=== PATIENT | male | born 2000 | race Hispanic/Latino ===

== ENCOUNTER 2019-12-19 23:49 | Emergency (ER) | payer SELFPAY ==
[2019-12-20 00:28] VITALS: BP 132/80
[2019-12-20 02:00] LABS: Basophils % (Auto) 0.1 % (0.0-1.8); Hematocrit 47.5 % (35.5-45.6); Hemoglobin 15.5 gm/dl (11.8-15.2); Lymphocytes # (Auto) 1.4 K/mm3 (1.2-5.4); Lymphocytes % (Auto) 8.4 % (13.4-35.0); Mean Corpuscular HGB Conc 33 % (32-34); Mean Corpuscular Volume 78 fl (84-94); Monocytes # (Auto) 1.8 K/mm3 (0.0-0.8); Monocytes % (Auto) 10.8 % (0.0-7.3); Platelet Count 217 K/mm3 (140-440); Red Blood Count 6.07 M/mm3 (3.65-5.03); Red Cell Distribution Width 14.7 % (13.2-15.2)
[2019-12-20 02:27] LABS: Alanine Aminotransferase 13 units/L (7-56); Albumin 5.3 g/dL (3.9-5); BUN/Creatinine Ratio 12; Blood Urea Nitrogen 13 mg/dL (9-20); Calcium 10.2 mg/dL (8.4-10.2); Hemolysis Index 2
== END 2019-12-20 05:52 | disposition left against medical advice (07) ==
LOC: ED 23:49
DX: R10.9 Unspecified abdominal pain (principal); Z53.21 Procedure and treatment not carried out due to patient leaving prior to being seen by health care provider
CPT/HCPCS: 36415; 80053; 80320; 85025; G0480

== ENCOUNTER 2019-12-20 13:02 | Inpatient (IN) | payer OTHER ==
[2019-12-20] MEDS ORDERED: SODIUM CHLORIDE 0.9% 1000 ML 1,000 ML IV ONE ×3 (19:41→22:45)
[2019-12-20] MEDS ORDERED: ONDANSETRON 4 MG/2 ML INJ IV ONE (19:41)
[2019-12-20] MEDS ORDERED: FAMOTIDINE 20 MG/2 ML INJ IV ONE (19:41)
[2019-12-20 20:12] LABS: Hematocrit 55.1 % (35.5-45.6); Hemoglobin 18.2 gm/dl (11.8-15.2); Mean Corpuscular HGB Conc 33 % (32-34); Mean Corpuscular Volume 78 fl (84-94); Platelet Count 221 K/mm3 (140-440); Red Blood Count 7.05 M/mm3 (3.65-5.03)
[2019-12-20 20:23] LABS: Alanine Aminotransferase 11 units/L (7-56); Albumin 4.4 g/dL (3.9-5); BUN/Creatinine Ratio 14; Bilirubin,Direct 0.4 mg/dL (0-0.2); Blood Urea Nitrogen 20 mg/dL (9-20); Calcium 9.6 mg/dL (8.4-10.2); Hemolysis Index 15
--- NOTE | 2019-12-20 20:49 | Emergency Department Report ---
<CECILIADANIELITO - Last Filed: 12/20/19 21:00> ED Abdominal Pain HPI - General Chief Complaint: Abdominal Pain Stated Complaint: ABDOMINAL PAIN Time Seen by Provider: 12/20/19 19:39 Source: patient Mode of arrival: Ambulatory Limitations: No Limitations - History of Present Illness Initial Comments: 19-year-old male presents emerged department complaining of abdominal pain associated with nausea and vomiting after going on an alcohol binge a couple days ago. States he consumed several drinks of hard liquor which was followed by nausea and some epigastric abdominal pain which is continue to wax and wane since the onset. Location: epigastric Severity scale (0 -10): 10 Quality: aching, sharp Improves With: nothing Worsens With: nothing Associated Symptoms: nausea, vomiting. denies: diarrhea, constipation, dysuria, hematemesis, melena, hematuria, anorexia - Related Data Previous Rx's Medication Instructions Recorded Last Taken Type Hyoscyamine Subl [Levsin Sl 0.125 0.125 mg SL Q6HR PRN #20 tab 12/20/19 Unknown Rx TAB] Omeprazole 40 mg PO DAILY #30 capsule. 12/20/19 Unknown Rx Ondansetron [Zofran ODT TAB] 8 mg PO Q12HR #14 tab.rapdis 12/20/19 Unknown Rx Allergies Allergy/AdvReac Type Severity Reaction Status Date / Time No Known Allergies Allergy Verified 12/21/19 00:30 ED Review of Systems Comment: All other systems reviewed and negative ED Past Medical Hx - Past Medical History Previous Medical History?: No - Surgical History Past Surgical History?: No - Social History Smoking Status: Never Smoker Substance Use Type: Alcohol, Marijuana - Medications Home Medications: Home Medications Medication Instructions Recorded Confirmed Last Taken Type Hyoscyamine Subl [Levsin Sl 0.125 0.125 mg SL Q6HR PRN #20 tab 12/20/19 Unknown Rx TAB] Omeprazole 40 mg PO DAILY #30 capsule. 12/20/19 Unknown Rx Ondansetron [Zofran ODT TAB] 8 mg PO Q12HR #14 tab.rapdis 12/20/19 Unknown Rx ED Physical Exam - General Limitations: No Limitations General appearance: alert, in no apparent distress - Head Head exam: Present: atraumatic, normocephalic - Eye Eye exam: Present: normal appearance, PERRL, EOMI Pupils: Present: normal accommodation - ENT ENT exam: Present: normal exam, normal orophraynx, mucous membranes moist - Neck Neck exam: Present: normal inspection - Respiratory Respiratory exam: Present: normal lung sounds bilaterally. Absent: respiratory distress - Cardiovascular Cardiovascular Exam: Present: regular rate, normal rhythm. Absent: systolic murmur, diastolic murmur, rubs, gallop - GI/Abdominal GI/Abdominal exam: Present: soft, tenderness (To the epigastric region with palpation. Abdomen is soft), normal bowel sounds - Rectal Rectal exam: Present: deferred - Extremities Exam Extremities exam: Present: normal inspection - Back Exam Back exam: Present: normal inspection - Neurological Exam Neurological exam: Present: alert, oriented X3 - Psychiatric Psychiatric exam: Present: normal affect, normal mood - Skin Skin exam: Present: warm, dry, intact, normal color. Absent: rash ED Medical Decision Making - Lab Data Result diagrams: 12/20/19 19:50 12/20/19 19:50 - Medical Decision Making This patient presents with abdominal pain of unclear etiology. Their evaluation has not identified a emergent etiology for the abdominal pain. Specifically, given the very benign exam, normal laboratory studies, and lack of significant risk factors, I have a very low suspicion for appendicitis, ischemic bowel, bowel perforation, or any other life threatening disease. I have discussed with the patient the level of uncertainty with undifferentiated abdominal pain and clearly explained the need to follow-up as noted on the discharge instructions, or return to the Emergency Department immediately if the pain worsens, develops fever, persistent and uncontrollable vomiting, or for any new symptoms or concerns. I discussed with the patient that this presentation today for abdominal pain could represent a significant risk for an acute abdominal process. Although the tests in the ED were essentially normal, there is still a possibility of a process such as appendicitis, diverticulitis, cholecystitis, ulcer, early bowel obstruction, mesenteric ischemia, kidney stone, or even kidney infection which could subsequently cause disability or . The patient understands that they must return within 24 hours for a recheck or see their physician within 24 hours for re-exam due to the possibility of significant surgical or medical process. ED Disposition Clinical Impression: Acute perforated appendicitis, Pneumoperitoneum, Sepsis Disposition: OP ADMIT IP TO THIS HOSP Is pt being admited?: No Does the pt Need Aspirin: No Condition: Stable <OSEDO,JOSE - Last Filed: 12/20/19 23:44> ED Abdominal Pain HPI - History of Present Illness MD Complaint: abdominal pain, flank pain ED Medical Decision Making - Lab Data Result diagrams: 12/20/19 19:50 12/20/19 19:50 - Radiology Data Radiology results: report reviewed, image reviewed Findings [facility] [address] [id number] Cat Scan Report Signed Patient: MARSHA WALSH III MR# : [id number] : 2000 Acct:[id number] Age/Sex: 19 / M ADM Date: 12/20/19 Loc: ED Attending Dr: Ordering Physician: ONOFRE MARTINEZ Date of Service: 12/20/19 Procedure(s): CT abdomen pelvis w con Accession Number(s): [id number] cc: ONOFRE MARTINEZ CT ABDOMEN AND PELVIS WITH IV CONTRAST INDICATION: abdominal pain, distension. COMPARISON: None available. TECHNIQUE: All CT scans at this facility use dose modulation, automated exposure control, iterative reconstruction or weight based dosing, when appropriate, to reduce radiation dose to as low as reasonably achievable. FINDINGS: Lung Bases: Lung bases are clear. There is a trace right pleural effusion. Skeletal System: No acute abnormality. ABDOMEN: Liver: No significant abnormality. Gallbladder: No significant abnormality. Bile Ducts: No significant abnormality. Pancreas: No significant abnormality. Spleen: No significant abnormality. Adrenals: No significant abnormality. Right Kidney: No significant abnormality. Left Kidney: No significant abnormality. Upper GI tract: Stomach and duodenum are relatively decompressed, limiting their evaluation. Small bowel is diffusely thick-walled with mural/mucosal enhancement. Lymph Nodes: There is right lower quadrant mesenteric adenopathy. Aorta: No significant abnormality. Additional Findings: There is ascites. There are a few punctate foci of free air under the right hemidiaphragm anteriorly. PELVIS: Colon: No acute abnormality. Urinary Bladder and Distal Ureters: No significant abnormality. Appendix: The appendix is thickened and fluid-filled. There appears to be rupture of the tip of the appendix (axial image 167, coronal images 83-90). Lymph Nodes: No significant adenopathy. Additional Findings: Pelvic ascites is noted. There appears to be mild peritoneal enhancement. IMPRESSION: 1. Ruptured viscus in the right lower quadrant, likely ruptured appendicitis. In addition to small amount of mesenteric gas and trace pneumoperitoneum, there is ascites. There is suggestion of mild peritoneal enhancement which is concerning for peritonitis. Small bowel inflammation is likely reactive related to the free fluid/peritonitis. CRITICAL RESULT: Time of Discovery (OFFICE MACHINE INSTALLER/CDT): 10:31 PM central Time of Communication (OFFICE MACHINE INSTALLER/CDT): 10:34 PM central Licensed Practitioner Receiving Report: Jose ADHIKARI Read-Back Performed: Yes. Signer Name: Gustabo Townsend MD Signed: 12/20/2019 11:35 PM Workstation Name: [id number] Transcribed By: SW Dictated By: Gustabo Townsend MD Electronically Authenticated By: Gustabo Townsend MD Signed Date/Time: 12/20/192334 DD/ 24 TD/TT: - Medical Decision Making I assumed care of the patient from Mr. Ramosalexandria Dunaway PA-C. Patient had presented to the ED with diffuse abdominal pain and intractable nausea and vomiting after alcohol consumption. Labs were drawn earlier before my shift, and the patient having been treated in the ED was marked for discharge from the ED. On reevaluation, patient's vital signs became unstable with heart rate of 135 bpm and blood pressure of 107/55. On reevaluation of the patient patient had shortness of breath, diffuse abdominal tenderness with guarding and dist ention with hyperkinetic bowel sounds. Patient was immediately started on a second liter of normal saline IV fluid bolus, EKG was ordered and more lab tests. Abdomen pelvis CT scan with contrast was also ordered immediately as well as chest x-ray. Chest x-ray was reviewed and it showed no acute c ardiopulmonary abnormalities or pneumonitis. Abdomen pelvis CT scan showed a ruptured viscus in the right lower quadrant, likely ruptured appendicitis. In addition to small amount of mesenteric gas and trace pneumoperitoneum, there is ascites. There is suggestion of mild peritoneal enhancement which is concerning for peritonitis. Small bowel inflammation is likely reactive related to the free fluid/peritonitis. The patient was immediately started on Zosyn, normal saline 1 L IV bolus additional from what he already received, placed on nasal cannula oxygen at 2 L a minute. I therefore discussed the patient's case with the ED attending physician Dr. Head who advised that the patient case be presented to the general surgeon on-call Dr. Roach. I therefore paged and discussed the patient's case and imaging report with the general surgeon on-call Dr. Roach who advised that the patient be immediately resuscitated with fluids, antibiotics and that the patient be admitted by the ospitalist physician on-call possibly in ICU and he shall consult on the patient once the patient is stable. I therefore paged and discussed the patient's case with the hospitalist physician on-call Dr. Nicole who came to the ED and evaluated the patient and agree with the plan of care, and he admitted the patient to ICU. - Differential Diagnosis Appendicitis; perforated bowel; SBO; pneumonia; kidney stone; ED Disposition Is pt being admited?: Yes Time of Disposition: 23:53 <JANNET HEAD - Last Filed: 12/21/19 03:20> ED Review of Systems ROS: Stated complaint: ABDOMINAL PAIN Other details as noted in HPI ED Course Vital Signs 12/20/19 12/20/19 12/20/19 13:32 21:24 22:40 Temperature 98.1 F 98.4 F Pulse Rate 95 H 135 H Respiratory 20 20 Rate Blood Pressure Blood Pressure 138/90 107/55 [Right] O2 Sat by Pulse 96 96 98 Oximetry 12/20/19 12/20/19 12/20/19 22:47 22:53 22:55 Temperature Pulse Rate 135 H Respiratory 18 Rate Blood Pressure Blood Pressure [Right] O2 Sat by Pulse 100 Oximetry 12/21/19 12/21/19 12/21/19 01:03 01:15 01:30 Temperature 99.5 F Pulse Rate 128 H 117 H Respiratory 15 35 H Rate Blood Pressure 116/74 117/81 126/78 Blood Pressure [Right] O2 Sat by Pulse 87 96 97 Oximetry 12/21/19 12/21/19 12/21/19 01:45 02:00 02:15 Temperature Pulse Rate 118 H 115 H 125 H Respiratory 34 H 38 H 32 H Rate Blood Pressure 123/85 120/80 128/79 Blood Pressure [Right] O2 Sat by Pulse 99 100 96 Oximetry 12/21/19 12/21/19 12/21/19 02:30 02:45 03:00 Temperature Pulse Rate 112 H 122 H 117 H Respiratory 35 H 33 H 43 H Rate Blood Pressure 121/76 131/81 123/79 Blood Pressure [Right] O2 Sat by Pulse 99 97 97 Oximetry ED Medical Decision Making - Lab Data Result diagrams: 12/20/19 19:50 12/20/19 19:50 - Medical Decision Making Patient brought to my attention by my colleague ONOFRE Martinez had 00:45 AM. Patient was signed to him by and Aramis for possible discharge however he noticed that patient vital sign change patient became more tachycardic. CT abdomen and pelvis ordered and patient found to have a perforated appendix with peritonitis. Dr. Roach,, surgeon construction technology instructor immediately consulted and patient received Zosyn. Resuscitation with fluid continued also. I personally examined the patient patient had rigid abdomen. I added Diflucan to patient antibiotic regimen. Patient was taken to the OR for further management. Critical Care Time: Yes Critical care time in (mins) excluding proc time.: 30 Critical care attestation.: If time is entered above; I have spent that time in minutes in the direct care of this critically ill patient, excluding procedure time.
[2019-12-20] MEDS ORDERED: HYOSCYAMINE SUBL 0.125 MG TAB SL ONE (21:10)
[2019-12-20] MEDS ORDERED: ONDANSETRON 4 MG/2 ML INJ IV STA (21:10)
[2019-12-20] MEDS ORDERED: MORPHINE 2 MG/1 ML INJ IV ONE (22:43)
[2019-12-20] MEDS ORDERED: METOCLOPRAMIDE 10 MG/2 ML INJ IV ONE (22:44)
[2019-12-20] MEDS ORDERED: diphenhydrAMINE 50 MG/ML VIAL IV ONE (22:44)
--- NOTE | 2019-12-20 23:03 | XRay Report ---
CHEST 1 VIEW INDICATION: cough. COMPARISON: None. FINDINGS: Support devices: None. Heart: Normal. Lungs/Pleura: No acute pulmonary or pleural findings. IMPRESSION: 1. No acute findings. Signer Name: Gustabo Townsend MD Signed: 12/20/2019 10:58 PM Workstation Name: [id number]
[2019-12-20 23:17] LABS: Bilirubin,Urine NEG (Negative); Blood,Urine SM (Negative); Color,Urine Yellow (Yellow); Mucus,Urine FEW /HPF; Urobilinogen,Urine < 2.0 mg/dL (<2.0)
[2019-12-20 23:26] LABS: Amphetamine Screen,Urine PRESUMPTIVE NEGATIVE; Benzodiazepines Screen,Urine PRESUMPTIVE NEGATIVE; Cannabinoid Screen,Urine PRESUMPTIVE POSITIVE; Cocaine Screen,Urine PRESUMPTIVE NEGATIVE; Methadone Screen,Urine PRESUMPTIVE NEGATIVE; Opiate Screen,Urine PRESUMPTIVE NEGATIVE
--- NOTE | 2019-12-20 23:40 | Cat Scan Report ---
CT ABDOMEN AND PELVIS WITH IV CONTRAST INDICATION: abdominal pain, distension. COMPARISON: None available. TECHNIQUE: All CT scans at this facility use dose modulation, automated exposure control, iterative reconstructi on or weight based dosing, when appropriate, to reduce radiation dose to as low as reasonably achieva ble. FINDINGS: Lung Bases: Lung bases are clear. There is a trace right pleural effusion. Skeletal System: No acute abnormality. ABDOMEN: Liver: No significant abnormality. Gallbladder: No significant abnormality. Bile Ducts: No significant abnormality. Pancreas: No significant abnormality. Spleen: No significant abnormality. Adrenals: No significant abnormality. Right Kidney: No significant abnormality. Left Kidney: No significant abnormality. Upper GI tract: Stomach and duodenum are relatively decompressed, limiting their evaluation. Small heidi wel is diffusely thick-walled with mural/mucosal enhancement. Lymph Nodes: There is right lower quadrant mesenteric adenopathy. Aorta: No significant abnormality. Additional Findings: There is ascites. There are a few punctate foci of free air under the right albino diaphragm anteriorly. PELVIS: Colon: No acute abnormality. Urinary Bladder and Distal Ureters: No significant abnormality. Appendix: The appendix is thickened and fluid-filled. There appears to be rupture of the tip of the a ppendix (axial image 167, coronal images 83-90). Lymph Nodes: No significant adenopathy. Additional Findings: Pelvic ascites is noted. There appears to be mild peritoneal enhancement. IMPRESSION: 1. Ruptured viscus in the right lower quadrant, likely ruptured appendicitis. In addition to small a mount of mesenteric gas and trace pneumoperitoneum, there is ascites. There is suggestion of mild per itoneal enhancement which is concerning for peritonitis. Small bowel inflammation is likely reactive related to the free fluid/peritonitis. CRITICAL RESULT: Time of Discovery (AUTO TECHNICIAN MECHANIC/CDT): 10:31 PM central Time of Communication (AUTO TECHNICIAN MECHANIC/CDT): 10:34 PM central Licensed Practitioner Receiving Report: Ruperto ADHIKARI Read-Back Performed: Yes. Signer Name: Gustabo Townsend MD Signed: 12/20/2019 11:35 PM Workstation Name: [id number]
[2019-12-20] MEDS ORDERED: PIPERACIL/TAZOBACTA 4.5/NS 100 4.5 GM/100 ML VIAL IV ONE (23:43)
[2019-12-20 23:53] LABS: Total Cells Counted 100
[2019-12-20 23:54] LABS: Band Neutrophils # (Manual) 0.2 K/mm3; Basophils % (Manual) 0 % (0.0-1.8); Eosinophils % (Manual) 0 % (0.0-4.3); Hypochromasia 1+; Ovalocytes Few; Platelet Estimate Consistent w Auto
[2019-12-21] MEDS ORDERED: MORPHINE 2 MG/1 ML INJ IV PRN (00:12)
[2019-12-21] MEDS ORDERED: ONDANSETRON 4 MG/2 ML INJ IV PRN (00:12)
[2019-12-21] MEDS ORDERED: SODIUM CHLORIDE 0.9% 1000 ML 1,000 ML IV SCH (00:15)
--- NOTE | 2019-12-21 00:28 | History and Physical Report ---
History of Present Illness Date of examination: 12/21/19 Date of admission: 12/21/2019 Chief complaint: Nausea and Vomiting Abdominal Pain History of present illness: 19-year-old -[place] male with no significant past medical history who presents to the emergency room today complaining of abdominal pain with associated nausea and vomiting. Patient states he was celebrating his 19st birthday and went on the binge drinking of alcohol. He thereafter started having nausea and vomiting with the associated abdominal pain. Abdominal pain is said to be epigastric and later became generalized.. There was a plan for patient to be discharged from the emergency room when he suddenly became hypotensive, tachycardic, tachypneic and diaphoretic I was further reevaluated by the ER physician for CT of the abdomen and pelvis. CT of the abdomen and pelvis however reveals : Ruptured viscus in the right lower quadrant, likely ruptured appendicitis. In addition to small amount of mesenteric gas and trace pneumoperitoneum, there is ascites. There is suggestion of mild peritoneal enhancement which is concerning for peritonitis. Small bowel inflammation is likely reactive related to the free fluid/peritonitis. General surgeon on-call was consulted by the ER physician for evaluation. Patient has been admitted for ruptured appendicitis and or peritonitis. He has been started on IV fluid and empiric IV antibiotics Past History Past Medical History: No medical history Past Surgical History: No surgical history Social history: no significant social history, alcohol abuse, other (Marijuana ) Family history: no significant family history Medications and Allergies Allergies Allergy/AdvReac Type Severity Reaction Status Date / Time No Known Allergies Allergy Verified 12/21/19 00:30 Home Medications Medication Instructions Recorded Confirmed Last Taken Type Hyoscyamine Subl [Levsin Sl 0.125 0.125 mg SL Q6HR PRN #20 tab 12/20/19 Unknown Rx TAB] Omeprazole 40 mg PO DAILY #30 capsule. 12/20/19 Unknown Rx Ondansetron [Zofran ODT TAB] 8 mg PO Q12HR #14 tab.maximino 12/20/19 Unknown Rx Active Meds: Active Medications Sodium Chloride (Nacl 0.9% 1000 Ml) 1,000 mls @ 125 mls/hr IV DIRECT REGGIE Piperacillin Sod/Tazobactam Sod (Zosyn/Ns 4.5gm/100ml) 4.5 gm in 100 mls @ 200 mls/hr IV Q8HR REGGIE; Protocol Morphine Sulfate (Morphine) 2 mg IV Q4H PRN PRN Reason: Pain, Moderate (4-6) Morphine Sulfate (Morphine) 2 mg IV Q4H PRN PRN Reason: Pain, Moderate (4-6) Ondansetron HCl (Zofran) 4 mg IV Q8H PRN PRN Reason: Nausea And Vomiting Sodium Chloride (Sodium Chloride Flush Syringe 10 Ml) 10 ml IV BID REGGIE Sodium Chloride (Sodium Chloride Flush Syringe 10 Ml) 10 ml IV PRN PRN PRN Reason: LINE FLUSH Sodium Chloride (Sodium Chloride Flush Syringe 10 Ml) 10 ml IV BID REGGIE Sodium Chloride (Sodium Chloride Flush Syringe 10 Ml) 10 ml IV PRN PRN PRN Reason: LINE FLUSH Review of Systems Constitutional: no fever, no chills Ears, nose, mouth and throat: no nasal congestion, no sore throat Cardiovascular: no chest pain, no palpitations Respiratory: no cough, no shortness of breath Gastrointestinal: abdominal pain, nausea, vomiting, no BRBPR, no melena Genitourinary Male: no dysuria, no hematuria, no flank pain, no nocturia Musculoskeletal: no neck pain, no low back pain Integumentary: no rash, no pruritis Neurological: no headaches, no confusion Psychiatric: no anxiety, no depression Exam - Constitutional Vitals: Temp Pulse Resp BP Pulse Ox 98.4 F 135 H 18 107/55 96 12/20/19 21:24 12/20/19 22:47 12/20/19 22:53 12/20/19 21:24 12/20/19 21:24 General appearance: Present: mild distress, well-nourished - EENT Eyes: Present: PERRL, EOM intact. Absent: scleral icterus ENT: hearing intact, clear oral mucosa, dentition normal - Neck Neck: Present: supple, normal ROM - Respiratory Respiratory effort: normal Respiratory: bilateral: CTA - Cardiovascular Heart rate: 135 (tachycardic) Rhythm: regular Heart Sounds: Present: S1 & S2. Absent: gallop, systolic murmur, diastolic murmur, rub - Extremities Extremities: no ischemia, pulses intact, pulses symmetrical, No edema, Full ROM Peripheral Pulses: within normal limits - Abdominal General gastrointestinal: Present: soft, tender (Genralized , with guarding,no rebound tenderness), non-distended, normal bowel sounds. Absent: mass - Integumentary Integumentary: Present: clear, warm, dry. Absent: rash - Musculoskeletal Musculoskeletal: strength equal bilaterally - Psychiatric Psychiatric: appropriate mood/affect, intact judgment & insight, memory intact, cooperative - Neurologic Neurologic: CNII-XII intact, no focal deficits, moves all extremities HEART Score - HEART Score Troponin: Troponin T < 0.010 ng/mL (0.00-0.029) 12/20/19 23:09 Results - Labs CBC & Chem 7: 12/20/19 19:50 12/20/19 19:50 Labs: Abnormal lab results 12/20/19 12/20/19 Range/Units 19:50 19:50 WBC 2.9 L (4.5-11.0) K/mm3 RBC 7.05 H (3.65-5.03) M/mm3 Hgb 18.2 H (11.8-15.2) gm/dl Hct 55.1 H D (35.5-45.6) % MCV 78 L (84-94) fl MCH 26 L (28-32) pg Monocytes % (Manual) 8.0 H (0.0-7.3) % Lymphocytes # (Manual) 0.7 L (1.2-5.4) K/mm3 Sodium 132 L D (137-145) mmol/L Chloride 90.2 L (98-107) mmol/L Carbon Dioxide 21 L (22-30) mmol/L Creatinine 1.4 H (0.8-1.3) mg/dL Glucose 134 H (75-100) mg/dL Total Bilirubin 1.40 H (0.1-1.2) mg/dL Direct Bilirubin 0.4 H (0-0.2) mg/dL Total Protein 8.4 H (6.3-8.2) g/dL Lipase 6 L (13-60) units/L Assessment and Plan - Patient Problems (1) Acute perforated appendicitis Current Visit: Yes Status: Acute Plan to address problem: General surgeon Dr. Roach has been consulted for evaluation and recommen dation. (2) Acute abdominal pain in right lower quadrant Current Visit: Yes Plan to address problem: Possibly secondary to the ruptured appendix. Patient placed on IV analgesic medication. (3) Nausea and vomiting in adult patient Current Visit: Yes Plan to address problem: We will place patient on IV Zofran as needed. (4) DVT prophylaxis Current Visit: Yes Status: Acute Plan to address problem: Patient placed on sequential compression device. (5) Full code status Current Visit: Yes Status: Acute
[2019-12-21 01:00] LABS: INR 1.52 (0.87-1.13)
[2019-12-21 01:01] LABS: Partial Thromboplastin Time 32.6 Sec. (24.2-36.6)
[2019-12-21] MEDS ORDERED: LACTATED RINGERS 1,000 ML IV ONE (01:08)
[2019-12-21] MEDS ORDERED: SODIUM CHLORIDE 0.9% 1000 ML 2,000 ML ONE (01:22)
[2019-12-21] MEDS ORDERED: FLUCONAZOLE 200 MG 200 MG/100 ML BAG IV ONE (01:27)
--- NOTE | 2019-12-21 01:45 | Consultation ---
History of Present Illness Consult date: 12/21/19 Reason for consult: abdominal pain - History of present illness History of present illness: 19 year old male with a several day hx of abd pain, patient was on a drinking binge and did not seek medical assistance, he presented to [facility] with progressive sinus tach, rigid abd, WBC 2.9, lactic acid 3 range, normotensive, CT abd pelvis reveals perforated appendix with ascites/ c/w feculant peritonitis. ABG pending. Past History Past Medical History: No medical history Past Surgical History: No surgical history Social history: no significant social history, alcohol abuse, other (Marijuana ) Family history: no significant family history Medications and Allergies Allergies Allergy/AdvReac Type Severity Reaction Status Date / Time No Known Allergies Allergy Verified 12/21/19 00:30 Home Medications Medication Instructions Recorded Confirmed Last Taken Type Hyoscyamine Subl [Levsin Sl 0.125 0.125 mg SL Q6HR PRN #20 tab 12/20/19 Unknown Rx TAB] Omeprazole 40 mg PO DAILY #30 capsule.dr 12/20/19 Unknown Rx Ondansetron [Zofran ODT TAB] 8 mg PO Q12HR #14 tab.rapdis 12/20/19 Unknown Rx Active Meds: Active Medications Sodium Chloride (Nacl 0.9% 1000 Ml) 1,000 mls @ 125 mls/hr IV DIRECT REGGIE Piperacillin Sod/Tazobactam Sod (Zosyn/Ns 4.5gm/100ml) 4.5 gm in 100 mls @ 200 mls/hr IV Q8HR REGGIE; Protocol Lactated Ringer's (Lactated Ringers) 1,000 mls @ 999 mls/hr IV BOLUS ONE Stop: 12/21/19 02:08 Sodium Chloride (Nacl 0.45% 1000 Ml) 1,000 mls @ 125 mls/hr IV DIRECT REGGIE Fluconazole (Diflucan) 200 mg in 100 mls @ 100 mls/hr IV ONCE ONE; Protocol Stop: 12/21/19 02:26 Morphine Sulfate (Morphine) 2 mg IV Q4H PRN PRN Reason: Pain, Moderate (4-6) Ondansetron HCl (Zofran) 4 mg IV Q8H PRN PRN Reason: Nausea And Vomiting Sodium Chloride (Sodium Chloride Flush Syringe 10 Ml) 10 ml IV BID REGGIE Sodium Chloride (Sodium Chloride Flush Syringe 10 Ml) 10 ml IV PRN PRN PRN Reason: LINE FLUSH Review of Systems - Constitutional other (abd pain) Exam Vital Signs Temp Pulse Resp BP Pulse Ox 98.1 F 95 H 20 138/90 96 12/20/19 13:32 12/20/19 13:32 12/20/19 13:32 12/20/19 13:32 12/20/19 13:32 - General physical appearance Positive: moderate distress - Eyes Positive: PERRL, normal occular movement - ENT Positive: normal pinna, normal nares, normal mucosa, no hearing loss, no josi estion - Neck Positive: no masses, no bruits, trachea midline, no venous distension - Respiratory Positive: normal expansion - Cardiovascular Rhythm: other (sinus tach) Heart Sounds: Present: S1 & S2. Absent: rub, click - Extremities Extremities: no ischemia, pulses symmetrical, No edema - Breasts Breasts: deferred - Abdomen Abdomen: Present: rigid, other (diffuse peritoneal tenderness/ rigid abdomen) Hernia: none - Genitourinary Male Genitourinary: normal Results - Labs 12/20/19 19:50 12/20/19 19:50 Abnormal lab results 12/20/19 12/20/19 12/21/19 Range/Units 19:50 19:50 00:00 WBC 2.9 L (4.5-11.0) K/mm3 RBC 7.05 H (3.65-5.03) M/mm3 Hgb 18.2 H (11.8-15.2) gm/dl Hct 55.1 H D (35.5-45.6) % MCV 78 L (84-94) fl MCH 26 L (28-32) pg Monocytes % (Manual) 8.0 H (0.0-7.3) % Lymphocytes # (Manual) 0.7 L (1.2-5.4) K/mm3 PT (12.2-14.9) Sec. INR (0.87-1.13) Sodium 132 L D (137-145) mmol/L Chloride 90.2 L (98-107) mmol/L Carbon Dioxide 21 L (22-30) mmol/L Creatinine 1.4 H (0.8-1.3) mg/dL Glucose 134 H (75-100) mg/dL Lactic Acid 3.00 H* (0.7-2.0) mmol/L Total Bilirubin 1.40 H (0.1-1.2) mg/dL Direct Bilirubin 0.4 H (0-0.2) mg/dL Total Protein 8.4 H (6.3-8.2) g/dL Lipase 6 L (13-60) units/L 12/21/19 Range/Units 00:06 WBC (4.5-11.0) K/mm3 RBC (3.65-5.03) M/mm3 Hgb (11.8-15.2) gm/dl Hct (35.5-45.6) % MCV (84-94) fl MCH (28-32) pg Monocytes % (Manual) (0.0-7.3) % Lymphocytes # (Manual) (1.2-5.4) K/mm3 PT 18.5 H (12.2-14.9) Sec. INR 1.52 H (0.87-1.13) Sodium (137-145) mmol/L Chloride (98-107) mmol/L Carbon Dioxide (22-30) mmol/L Creatinine (0.8-1.3) mg/dL Glucose (75-100) mg/dL Lactic Acid (0.7-2.0) mmol/L Total Bilirubin (0.1-1.2) mg/dL Direct Bilirubin (0-0.2) mg/dL Total Protein (6.3-8.2) g/dL Lipase (13-60) units/L Diabetes panel 12/20/19 Range/Units 19:50 Sodium 132 L D (137-145) mmol/L Potassium 4.0 (3.6-5.0) mmol/L Chloride 90.2 L (98-107) mmol/L Carbon Dioxide 21 L (22-30) mmol/L BUN 20 (9-20) mg/dL Creatinine 1.4 H (0.8-1.3) mg/dL Glucose 134 H (75-100) mg/dL Calcium 9.6 (8.4-10.2) mg/dL AST 14 (5-40) units/L ALT 11 (7-56) units/L Alkaline Phosphatase 60 (35-129) units/L Total Protein 8.4 H (6.3-8.2) g/dL Albumin 4.4 (3.9-5) g/dL Calcium panel 12/20/19 Range/Units 19:50 Calcium 9.6 (8.4-10.2) mg/dL Albumin 4.4 (3.9-5) g/dL Pituitary panel 12/20/19 Range/Units 19:50 Sodium 132 L D (137-145) mmol/L Potassium 4.0 (3.6-5.0) mmol/L Chloride 90.2 L (98-107) mmol/L Carbon Dioxide 21 L (22-30) mmol/L BUN 20 (9-20) mg/dL Creatinine 1.4 H (0.8-1.3) mg/dL Glucose 134 H (75-100) mg/dL Calcium 9.6 (8.4-10.2) mg/dL Adrenal panel 12/20/19 Range/Units 19:50 Sodium 132 L D (137-145) mmol/L Potassium 4.0 (3.6-5.0) mmol/L Chloride 90.2 L (98-107) mmol/L Carbon Dioxide 21 L (22-30) mmol/L BUN 20 (9-20) mg/dL Creatinine 1.4 H (0.8-1.3) mg/dL Glucose 134 H (75-100) mg/dL Calcium 9.6 (8.4-10.2) mg/dL Total Bilirubin 1.40 H (0.1-1.2) mg/dL AST 14 (5-40) units/L ALT 11 (7-56) units/L Alkaline Phosphatase 60 (35-129) units/L Total Protein 8.4 H (6.3-8.2) g/dL Albumin 4.4 (3.9-5) g/dL Assessment and Plan Vital Signs - 24 hr 12/20/19 12/20/19 12/20/19 13:32 21:24 22:40 Temperature 98.1 F 98.4 F Pulse Rate 95 H 135 H Respiratory 20 20 Rate Blood Pressure Blood Pressure 138/90 107/55 [Right] O2 Sat by Pulse 96 96 98 Oximetry 12/20/19 12/20/19 12/21/19 22:47 22:53 01:03 Temperature 99.5 F Pulse Rate 135 H Respiratory 18 Rate Blood Pressure 116/74 Blood Pressure [Right] O2 Sat by Pulse 87 Oximetry 12/21/19 12/21/19 12/21/19 01:15 01:30 01:45 Temperature Pulse Rate 128 H 117 H 118 H Respiratory 15 35 H 34 H Rate Blood Pressure 117/81 126/78 123/85 Blood Pressure [Right] O2 Sat by Pulse 96 97 99 Oximetry perforated appendicitis/ feculant peritonitis, air in some mesenteric veins need aggressive fluid ressusitation, iv zosyn and diflucan, abg Emergency open appendectomy, wash out, indicated procedures (source control)
[2019-12-21] MEDS ORDERED: SODIUM CHLORIDE 0.45% 1000 ML 1,000 ML IV SCH (02:00)
[2019-12-21] MEDS ORDERED: SODIUM CHLORIDE 0.9% 1000 ML 2,000 ML IV SCH (02:00)
[2019-12-21] MEDS ORDERED: LACTATED RINGERS 1,000 ML ONE ×2 (02:33→04:44)
--- NOTE | 2019-12-21 02:44 | Anesthesia Consultation ---
Anesthesia Consult and Med Hx Date of service: 12/21/19 - Airway Anesthetic Teeth Evaluation: Good ROM Head & Neck: Adequate Mental/Hyoid Distance: Adequate Mallampati Class: Class II Intubation Access Assessment: Good - Pulmonary Exam CTA: Yes - Cardiac Exam Cardiac Exam: RRR - Pre-Operative Health Status ASA Pre-Surgery Classification: ASA2, Emergency Proposed Anesthetic Plan: General - Other Systems Hx Alcohol Use: Yes
[2019-12-21] MEDS ORDERED: propofoL 200 MG/20 ML VIAL IV ONE (02:47)
[2019-12-21] MEDS ORDERED: ROCURONIUM 50 MG/5 ML INJ IV ONE (02:47)
[2019-12-21] MEDS ORDERED: fentaNYL 100 MCG/2 ML INJ ONE (02:47)
[2019-12-21] MEDS ORDERED: MORPHINE 2 MG/1 ML INJ ONE (02:51)
[2019-12-21] MEDS: MORPHINE 2 MG/1 ML INJ IV PRN (02:54)
--- NOTE | 2019-12-21 03:10 | Anesthesia Day of Surgery ---
Anesthesia Day of Surgery - Day of Surgery Patient Examined: Yes Patient H&P Reviewed: Yes Patient is NPO: Yes
[2019-12-21] MEDS ORDERED: HYDROGEN PEROXIDE 118 ML SOLUTION ONE (03:23)
[2019-12-21] MEDS ORDERED: SODIUM CHLORIDE 0.9% IRR 1,500 ML BOTTLE IR ONE (04:00)
[2019-12-21] MEDS ORDERED: HYDROGEN PEROXIDE 118 ML SOLUTION IRRIGATION ONE (04:00)
[2019-12-21] MEDS ORDERED: NEOSTIGMINE 10MG/10 ML INJ MDV ONE (04:00)
[2019-12-21] MEDS ORDERED: dexAMETHasone 20 MG/5 ML VIAL ONE (04:00)
[2019-12-21] MEDS ORDERED: GLYCOPYRROLATE 0.4 MG/2 ML INJ ONE ×2 (04:00)
[2019-12-21] MEDS ORDERED: ONDANSETRON 4 MG/2 ML INJ ONE (04:00)
[2019-12-21] MEDS ORDERED: HYDROmorphone 1 MG/1 ML INJ ONE (04:12)
--- NOTE | 2019-12-21 04:21 | Post Operative Note ---
Pre-op diagnosis: perforated appendicitis/feculent peritonitis Post-op diagnosis: same Findings: perforated appendix, purulent peritonitis Procedure: Exploratory laparotomy (low midline), appendectomy, wash out, deep intraperitoneal cultures (bacterial), 19 Suresh drain Anesthesia: SANGITAA Surgeon: FREDDY WRIGHT Estimated blood loss: minimal Pathology: list (appendix and deep bacterial cultures) Condition: stable Disposition: floor
[2019-12-21] MEDS ORDERED: MORPHINE 4 MG/1 ML INJ IV PRN (04:25)
--- NOTE | 2019-12-21 04:44 | Post Anesthesia Evaluation ---
- Post Anesthesia Evaluation Patient Participated: Yes Airway Patent: Yes Stable Respiratory Function: Yes Nausea/Vomiting: No Temp > 96.8F: Yes Pain Manageable: Yes Adequeate Hydration: Yes Anesthesia Complications: No Block Receding Appropriately: Not Applicable Patient on Ventilator: No
[2019-12-21] MEDS ORDERED: PIPERACILLIN/TAZOBACTAM 3.375 3.375 GM/50 ML BAG IV SCH (06:00)
--- NOTE | 2019-12-21 06:13 | Operative Report ---
PREOPERATIVE DIAGNOSIS: Perforated appendix with feculent peritonitis. POSTOPERATIVE DIAGNOSIS: Perforated appendix with feculent peritonitis. OPERATIVE FINDINGS: Compatible with a perforated appendix with purulent peritonitis. PROCEDURE PERFORMED: Exploratory laparotomy with a limited low midline, open appendectomy, washout with deep intraperitoneal cultures, bacterial aerobic and anaerobic, and placement of a 19 Suresh drain. SURGEON: Dr. Vazquez Roach. BLOOD LOSS: Minimal. PATHOLOGY: Consisted of the appendix and deep bacterial wound cultures. CONDITION: Stable. DISPOSITION: To the floor. DESCRIPTION OF PROCEDURE: After informed consent, the patient was brought to the operating room, induced under general anesthesia. A Meeks catheter was placed, along with an OG tube. The patient received IV antibiotics. He had compression stockings in place. He was sterilely prepped and draped in a supine fashion with the Ioban drape with pockets. A standard low midline incision was made extending just above the umbilicus, down to the pubic symphysis, dissected down to the underlying linea alba which was incised sharply, and then the peritoneum was elevated between 2 curved hemostats. A small luis alberto was made and the intraabdominal cavity entered. There was immediate return of about 2 liters of just purulent or britt pus with some, what I would refer to, as feculent peritonitis or at pwasleasturulent peritonitis. There were no obvious food particles or obvious stool, but it was obviously quite infected. I used the full incision and placed the various blades of the Bookwalter retractor to optimize exposure, and then I mobilized the cecum and I identified the appendix. There was operative finding of a gangrenous, perforated distal appendix, which was situated near the psoas muscle. I de-loculated all the pockets. I used a QUIANA-75 stapler and stapled across the base of the appendix, and then I removed the appendix and placed Lembert stitches, interrupted 3-0 Vicryls over the staple line. There was no significant bleeding. The appendix was sent for permanent pathology. There was just britt pus, especially prominent in the pelvis, which was suctioned out with a pull tip sucker. I did massive irrigation with dilute hydrogen peroxide and normal saline, and I sucked out all quadrants of the abdomen, and then I carefully examined the area of the cecum where the appendix was removed. There was no bleeding and the staple line was intact. I placed a 19 Suresh drain down in the pelvis, brought it out through a separate stab incision and secured it to the skin with heavy silk. Then, I washed out again and then closed utilizing #1 looped PDS and then I packed the skin opening with a kerlex roll soaked in Betadine. The sponge and needle count was correct x 2 at the completion of the procedure. There were no intraoperative complications. The patient did not require pressor support during the case. JOB# [id number] MICHAEL/JINA HADLEY
--- NOTE | 2019-12-21 10:53 | Consultation ---
History of Present Illness Consult date: 12/21/19 Reason for consult: cough History of present illness: 19-year-old -Serbian male with no significant past medical history who presents to the emergency room today complaining of abdominal pain with associated nausea and vomiting. Patient states he was celebrating his 19st birthday and went on the binge drinking of alcohol. He thereafter started having nausea and vomiting with the associated abdominal pain. Abdominal pain is said to be epigastric and later became generalized.. There was a plan for patient to be discharged from the emergency room when he suddenly became hypotensive, tachycardic, tachypneic and diaphoretic I was f urther reevaluated by the ER physician for CT of the abdomen and pelvis. CT of the abdomen and pelvis however reveals : Ruptured viscus in the right lower quadrant, likely ruptured appendicitis. In addition to small amount of mesenteric gas and trace pneumoperitoneum, there is ascites. There is suggestion of mild peritoneal enhancement which is concerning for peritonitis. Small bowel inflamm ation is likely reactive related to the free fluid/peritonitis. General surgeon on-call was consulted by the ER physician for evaluation. Patient has been admitted for ruptured appendicitis and or peritonitis. He has been started on IV fluid and empiric IV antibiotics Patient undergone exploratory laparotomy for perforated appedex and purulent peritonitis. Patient resting on room air. O2 saturation 97%. Patient febrile. Singh 101.7. Patient leukopenic. Patient is on zosyn. Chest xray reported no acute findings. Past History Past Medical History: No medical history Past Surgical History: No surgical history Social history: no significant social history, alcohol abuse, other (Marijuana ) Family history: no significant family history Medications and Allergies Allergies Allergy/AdvReac Type Severity Reaction Status Date / Time No Known Allergies Allergy Verified 12/21/19 00:30 Home Medications Medication Instructions Recorded Confirmed Last Taken Type Hyoscyamine Subl [Levsin Sl 0.125 0.125 mg SL Q6HR PRN #20 tab 12/20/19 Unknown Rx TAB] Omeprazole 40 mg PO DAILY #30 capsule.dr 12/20/19 Unknown Rx Ondansetron [Zofran ODT TAB] 8 mg PO Q12HR #14 tab.rapdis 12/20/19 Unknown Rx Active Meds: Active Medications Piperacillin Sod/Tazobactam Sod (Zosyn/Ns 4.5gm/100ml) 4.5 gm in 100 mls @ 200 mls/hr IV Q8HR REGGIE; Protocol Dextrose/Sodium Chloride (D5/0.45ns) 1,000 mls @ 100 mls/hr IV DIRECT REGGIE Morphine Sulfate (Morphine) 2 mg IV Q4H PRN PRN Reason: Pain, Moderate (4-6) Last Admin: 12/21/19 02:54 Dose: 2 mg Documented by: Morphine Sulfate (Morphine) 4 mg IV Q4H PRN PRN Reason: Pain , Severe (7-10) Ondansetron HCl (Zofran) 4 mg IV Q8H PRN PRN Reason: Nausea And Vomiting Sodium Chloride (Sodium Chloride Flush Syringe 10 Ml) 10 ml IV BID REGGIE Sodium Chloride (Sodium Chloride Flush Syringe 10 Ml) 10 ml IV PRN PRN PRN Reason: LINE FLUSH Review of Systems All systems: negative Physical Examination Vital signs: Vital Signs Temp Pulse Resp BP Pulse Ox 98.1 F 95 H 20 138/90 96 12/20/19 13:32 12/20/19 13:32 12/20/19 13:32 12/20/19 13:32 12/20/19 13:32 General appearance: no acute distress, alert Eyes: non-icteric ENT: oropharynx moist Neck: supple, no JVD Effort: normal Ascultation: Bilateral: diminished breath sounds Cardiovascular: regular rate and rhythm Gastrointestinal: hypoactive bowel sounds, tender Integumentary: normal Extremities: no cyanosis, no edema Musculoskeletal: no deformities Gait: other (Resting in bed at this time.) normal mental status, non-focal exam, pupils equal and round, CN II-XII normal mood appropriate Results - Laboratory Findings CBC and BMP: 12/20/19 19:50 12/20/19 19:50 ABG ABG pH 7.444 (7.320-7.450) 12/21/19 Unknown POC ABG pCO2 26.0 mmHg (32.0-48.0) L 12/21/19 Unknown POC ABG pO2 119.5 mmHg (83-108) H 12/21/19 Unknown POC ABG HCO3 17.5 12/21/19 Unknown PT/INR, D-dimer PT 18.5 Sec. (12.2-14.9) H 12/21/19 00:06 INR 1.52 (0.87-1.13) H 12/21/19 00:06 Abnormal lab findings: Abnormal Labs 12/20/19 12/20/19 12/21/19 19:50 19:50 00:00 WBC 2.9 L RBC 7.05 H Hgb 18.2 H Hct 55.1 H D MCV 78 L MCH 26 L Monocytes % (Manual) 8.0 H Lymphocytes # (Manual) 0.7 L PT INR POC ABG pCO2 POC ABG pO2 ABG Sodium ABG Glucose Sodium 132 L D Chloride 90.2 L Carbon Dioxide 21 L Creatinine 1.4 H Glucose 134 H Lactic Acid 3.00 H* Total Bilirubin 1.40 H Direct Bilirubin 0.4 H Total Protein 8.4 H Lipase 6 L Arterial Blood Glucose Arterial Blood Ionized Calcium 12/21/19 12/21/19 12/21/19 00:06 02:45 06:02 WBC RBC Hgb Hct MCV MCH Monocytes % (Manual) Lymphocytes # (Manual) PT 18.5 H INR 1.52 H POC ABG pCO2 POC ABG pO2 ABG Sodium ABG Glucose Sodium Chloride Carbon Dioxide Creatinine Glucose Lactic Acid 3.70 H* 2.50 H* Total Bilirubin Direct Bilirubin Total Protein Lipase Arterial Blood Glucose Arterial Blood Ionized Calcium 12/21/19 Unknown WBC RBC Hgb Hct MCV MCH Monocytes % (Manual) Lymphocytes # (Manual) PT INR POC ABG pCO2 26.0 L POC ABG pO2 119.5 H ABG Sodium 130.0 L ABG Glucose 101 H Sodium Chloride Carbon Dioxide Creatinine Glucose Lactic Acid Total Bilirubin Direct Bilirubin Total Protein Lipase Arterial Blood Glucose 101 H Arterial Blood Ionized Calcium 4.3 L - Diagnostic Findings Chest x-ray: report reviewed, image reviewed Additional studies: CHEST 1 VIEW 12/20/19 INDICATION: cough. COMPARISON: None. FINDINGS: Support devices: None. Heart: Normal. Lungs/Pleura: No acute pulmonary or pleural findings. IMPRESSION: 1. No acute findings. Assessment and Plan 19-year-old -Serbian male with no significant past medical history who presents to the emergency room today complaining of abdominal pain with associated nausea and vomiting. Patient states he was celebrating his 19st birthday and went on the binge drinking of alcohol. He thereafter started having nausea and vomiting with the associated abdominal pain. Abdominal pain is said to be epigastric and later became generalized.. There was a plan for patient to be discharged from the emergency room when he suddenly became hypotensive, tachycardic, tachypneic and diaphoretic I was further reevaluated by the ER physician for CT of the abdomen and pelvis. CT of the abdomen and pelvis however reveals : Ruptured viscus in the right lower quadrant, likely ruptured appendicitis. In addition to small amount of mesenteric gas and trace pneumoperitoneum, there is ascites. There is suggestion of mild peritoneal enhancement which is concerning for peritonitis. Small bowel inflammation is likely reactive related to the free fluid/peritonitis. General surgeon on-call was consulted by the ER physician for evaluation. Patient has been admitted for ruptured appendicitis and or peritonitis. He has been started on IV fluid and empiric IV antibiotics Patient undergone exploratory laparotomy for perforated appedex and purulent peritonitis. Patient resting on room air. O2 saturation 97%. Patient febrile. Singh 101.7. Patient leukopenic. Patient is on zosyn. Chest xray reported no acute findings. - Patient Problems (1) Acute perforated appendicitis Current Visit: Yes Status: Acute Plan to address problem: Patient undergone exploratory laporotomy Appendectomy and repair of perforated Appendex and peritoneal wash out. (2) Pneumoperitoneum Current Visit: Yes Status: Acute Plan to address problem: From perforated viscous. Perforated viscus repaired. (3) Sepsis Current Visit: Yes Status: Acute Plan to address problem: Patient is on zosyn. (4) Peritonitis Current Visit: Yes Status: Acute Plan to address problem: Peritoneal wash out. patient is on zosyn.
[2019-12-21] MEDS: D5W/0.45% NACL 1,000 ML IV SCH ×2 (11:53→22:13)
--- NOTE | 2019-12-21 14:55 | Progress Note ---
Assessment and Plan Assessment and plan: 19-year-old -Citizen Of [place] male with no significant past medical history who presents to the emergency room today complaining of abdominal pain with associated nausea and vomiting. Patient states he was celebrating his 19st birthday and went on the binge drinking of alcohol. He thereafter started having nausea and vomiting with the associated abdominal pain. Abdominal pain is said to be epigastric and later became generalized.. There was a plan for patient to be discharged from the emergency room when he suddenly became hypotensive, tachycardic, tachypneic and diaphoretic I was further reevaluated by the ER physician for CT of the abdomen and pelvis. CT of the abdomen and pelvis however reveals : Ruptured viscus in the right lower quadrant, likely ruptured appendicitis. In addition to small amount of mesenteric gas and trace pneumoperitoneum, there is ascites. There is suggestion of mild peritoneal enhancement which is concerning for peritonitis. Small bowel inflammation is likely reactive related to the free fluid/peritonitis. General surgeon on-call was consulted by the ER physician for evaluation. Patient has been admitted for ruptured appendicitis and or peritonitis. He has been started on IV fluid and empiric IV antibiotics Sepsis secondary to perforated appendicitis s/p Open appendectomy feculant peritonitis, air in some mesenteric vein YAHIR SECONDARY TO Vasomotor nephropathy Leukopenia Hyperblirubenmia Hyponatremia Plan Continue supportive care Pain control Give additional bolus of fluids due to tachycadia Check renal function in am ID consult Continue emperic antibiotics and monitor AM labs DVT/GI PROPHY History Interval history: Patient seen and examined, reports no distress except surgical pain. Wants to eat. Hospitalist Physical - Physical exam Narrative exam: General appearance: no acute distress, alert Eyes: non-icteric ENT: oropharynx moist, NGT inplace Neck: supple, no JVD Effort: normal Ascultation: Bilateral: diminished breath sounds Cardiovascular: regular rate and rhythm Gastrointestinal: hypoactive bowel sounds, tender, Dressing noted, Integumentary: normal Extremities: no cyanosis, no edema Musculoskeletal: no deformities Gait: other (Resting in bed at this time.) normal mental status, non-focal exam, pupils equal and round, CN II-XII normal mood appropriate - Constitutional Vitals: Temp Pulse Resp BP Pulse Ox 101.7 F H 122 H 18 133/85 97 12/21/19 11:18 12/21/19 11:18 12/21/19 11:18 12/21/19 11:18 12/21/19 11:18 General appearance: Present: mild distress, well-nourished HEART Score - HEART Score Troponin: Troponin T < 0.010 ng/mL (0.00-0.029) 12/20/19 23:09 Results - Labs CBC & Chem 7: 12/20/19 19:50 12/20/19 19:50 Labs: Laboratory Last Values WBC 2.9 K/mm3 (4.5-11.0) L 12/20/19 19:50 RBC 7.05 M/mm3 (3.65-5.03) H 12/20/19 19:50 Hgb 18.2 gm/dl (11.8-15.2) H 12/20/19 19:50 Hct 55.1 % (35.5-45.6) H D 12/20/19 19:50 MCV 78 fl (84-94) L 12/20/19 19:50 MCH 26 pg (28-32) L 12/20/19 19:50 MCHC 33 % (32-34) 12/20/19 19:50 RDW 15.0 % (13.2-15.2) 12/20/19 19:50 Plt Count 221 K/mm3 (140-440) 12/20/19 19:50 Add Manual Diff Complete 12/20/19 19:50 Total Counted 100 12/20/19 19:50 Seg Neuts % (Manual) 62.0 % (40.0-70.0) 12/20/19 19:50 Band Neutrophils % 6.0 % 12/20/19 19:50 Lymphocytes % (Manual) 24.0 % (13.4-35.0) 12/20/19 19:50 Reactive Lymphs % (Man) 0 % 12/20/19 19:50 Monocytes % (Manual) 8.0 % (0.0-7.3) H 12/20/19 19:50 Eosinophils % (Manual) 0 % (0.0-4.3) 12/20/19 19:50 Basophils % (Manual) 0 % (0.0-1.8) 12/20/19 19:50 Metamyelocytes % 0 % 12/20/19 19:50 Myelocytes % 0 % 12/20/19 19:50 Promyelocytes % 0 % 12/20/19 19:50 Blast Cells % 0 % 12/20/19 19:50 Nucleated RBC % Not Reportable 12/20/19 19:50 Seg Neutrophils # Man 1.8 K/mm3 (1.8-7.7) 12/20/19 19:50 Band Neutrophils # 0.2 K/mm3 12/20/19 19:50 Lymphocytes # (Manual) 0.7 K/mm3 (1.2-5.4) L 12/20/19 19:50 Abs React Lymphs (Man) 0.0 K/mm3 12/20/19 19:50 Monocytes # (Manual) 0.2 K/mm3 (0.0-0.8) 12/20/19 19:50 Eosinophils # (Manual) 0.0 K/mm3 (0.0-0.4) 12/20/19 19:50 Basophils # (Manual) 0.0 K/mm3 (0.0-0.1) 12/20/19 19:50 Metamyelocytes # 0.0 K/mm3 12/20/19 19:50 Myelocytes # 0.0 K/mm3 12/20/19 19:50 Promyelocytes # 0.0 K/mm3 12/20/19 19:50 Blast Cells # 0.0 K/mm3 12/20/19 19:50 WBC Morphology Not Reportable 12/20/19 19:50 Hypersegmented Neuts Not Reportable 12/20/19 19:50 Hyposegmented Neuts Not Reportable 12/20/19 19:50 Hypogranular Neuts Not Reportable 12/20/19 19:50 Smudge Cells Not Reportable 12/20/19 19:50 Toxic Granulation Not Reportable 12/20/19 19:50 Toxic Vacuolation Not Reportable 12/20/19 19:50 Dohle Bodies Not Reportable 12/20/19 19:50 Pelger-Huet Anomaly Not Reportable 12/20/19 19:50 Manas Rods Not Reportable 12/20/19 19:50 Platelet Estimate Consistent w auto 12/20/19 19:50 Clumped Platelets Not Reportable 12/20/19 19:50 Plt Clumps, EDTA Not Reportable 12/20/19 19:50 Large Platelets Not Reportable 12/20/19 19:50 Giant Platelets Not Reportable 12/20/19 19:50 Platelet Satelliting Not Reportable 12/20/19 19:50 Plt Morphology Comment Not Reportable 12/20/19 19:50 RBC Morphology Not Reportable 12/20/19 19:50 Dimorphic RBCs Not Reportable 12/20/19 19:50 Polychromasia Not Reportable 12/20/19 19:50 Hypochromasia 1+ 12/20/19 19:50 Poikilocytosis Not Reportable 12/20/19 19:50 Anisocytosis Not Reportable 12/20/19 19:50 Microcytosis Not Reportable 12/20/19 19:50 Macrocytosis Not Reportable 12/20/19 19:50 Spherocytes Not Reportable 12/20/19 19:50 Pappenheimer Bodies Not Reportable 12/20/19 19:50 Sickle Cells Not Reportable 12/20/19 19:50 Target Cells Not Reportable 12/20/19 19:50 Tear Drop Cells Not Reportable 12/20/19 19:50 Ovalocytes Few 12/20/19 19:50 Helmet Cells Not Reportable 12/20/19 19:50 Abernathy-Lowden Bodies Not Reportable 12/20/19 19:50 [place] Rings Not Reportable 12/20/19 19:50 Flagler Cells Not Reportable 12/20/19 19:50 Bite Cells Not Reportable 12/20/19 19:50 Crenated Cell Not Reportable 12/20/19 19:50 Elliptocytes Not Reportable 12/20/19 19:50 Acanthocytes (Spur) Not Reportable 12/20/19 19:50 Rouleaux Not Reportable 12/20/19 19:50 Hemoglobin C Crystals Not Reportable 12/20/19 19:50 Schistocytes Not Reportable 12/20/19 19:50 Malaria parasites Not Reportable 12/20/19 19:50 Pelon Bodies Not Reportable 12/20/19 19:50 Hem Pathologist Commnt No 12/20/19 19:50 PT 18.5 Sec. (12.2-14.9) H 12/21/19 00:06 INR 1.52 (0.87-1.13) H 12/21/19 00:06 APTT 32.6 Sec. (24.2-36.6) 12/21/19 00:06 ABG pH 7.444 (7.320-7.450) 12/21/19 Unknown POC ABG pCO2 26.0 mmHg (32.0-48.0) L 12/21/19 Unknown POC ABG pO2 119.5 mmHg (83-108) H 12/21/19 Unknown POC ABG HCO3 17.5 12/21/19 Unknown POC ABG Base Excess -4.6 12/21/19 Unknown ABG Hemoglobin 16 (12.0-17.5) 12/21/19 Unknown ABG Sodium 130.0 mmol/L (136.0-145.0) L 12/21/19 Unknown ABG Potassium 3.8 mmol/L (3.40-4.50) 12/21/19 Unknown ABG Chloride 104.0 mmol/L (98-107) 12/21/19 Unknown ABG Glucose 101 mg/dL (65-95) H 12/21/19 Unknown FiO2 21 12/21/19 Unknown Sodium 132 mmol/L (137-145) L D 12/20/19 19:50 Potassium 4.0 mmol/L (3.6-5.0) 12/20/19 19:50 Chloride 90.2 mmol/L (98-107) L 12/20/19 19:50 Carbon Dioxide 21 mmol/L (22-30) L 12/20/19 19:50 Anion Gap 25 mmol/L 12/20/19 19:50 BUN 20 mg/dL (9-20) 12/20/19 19:50 Creatinine 1.4 mg/dL (0.8-1.3) H 12/20/19 19:50 Estimated GFR > 60 ml/min 12/20/19 19:50 BUN/Creatinine Ratio 14 % 12/20/19 19:50 Glucose 134 mg/dL (75-100) H 12/20/19 19:50 Lactic Acid 2.50 mmol/L (0.7-2.0) H* 12/21/19 06:02 Calcium 9.6 mg/dL (8.4-10.2) 12/20/19 19:50 Total Bilirubin 1.40 mg/dL (0.1-1.2) H 12/20/19 19:50 Direct Bilirubin 0.4 mg/dL (0-0.2) H 12/20/19 19:50 Indirect Bilirubin 1.0 mg/dL 12/20/19 19:50 AST 14 units/L (5-40) 12/20/19 19:50 ALT 11 units/L (7-56) 12/20/19 19:50 Alkaline Phosphatase 60 units/L (35-129) 12/20/19 19:50 Troponin T < 0.010 ng/mL (0.00-0.029) 12/20/19 23:09 Total Protein 8.4 g/dL (6.3-8.2) H 12/20/19 19:50 Albumin 4.4 g/dL (3.9-5) 12/20/19 19:50 Albumin/Globulin Ratio 1.1 % 12/20/19 19:50 Lipase 6 units/L (13-60) L 12/20/19 19:50 Arterial Blood Glucose 101 mg/dL (65-95) H 12/21/19 Unknown Arterial Blood Ionized Calcium 4.3 mg/dL (4.6-5.3) L 12/21/19 Unknown Urine Color Yellow (Yellow) 12/20/19 Unknown Urine Turbidity Slightly-cloudy (Clear) 12/20/19 Unknown Urine pH 5.0 (5.0-7.0) 12/20/19 Unknown Ur Specific Burnett 1.014 (1.003-1.030) 12/20/19 Unknown Urine Protein 30 mg/dl mg/dL (Negative) 12/20/19 Unknown Urine Glucose (UA) Neg mg/dL (Negative) 12/20/19 Unknown Urine Ketones Neg mg/dL (Negative) 12/20/19 Unknown Urine Blood Sm (Negative) 12/20/19 Unknown Urine Nitrite Neg (Negative) 12/20/19 Unknown Urine Bilirubin Neg (Negative) 12/20/19 Unknown Urine Urobilinogen < 2.0 mg/dL (<2.0) 12/20/19 Unknown Ur Leukocyte Esterase Neg (Negative) 12/20/19 Unknown Urine WBC (Auto) 1.0 /HPF (0.0-6.0) 12/20/19 Unknown Urine RBC (Auto) 1.0 /HPF (0.0-6.0) 12/20/19 Unknown Urine Mucus Few /HPF 12/20/19 Unknown Urine Opiates Screen Presumptive negative 12/20/19 Unknown Urine Methadone Screen Presumptive negative 12/20/19 Unknown Ur Barbiturates Screen Presumptive negative 12/20/19 Unknown Ur Phencyclidine Scrn Presumptive negative 12/20/19 Unknown Ur Amphetamines Screen Presumptive negative 12/20/19 Unknown U Benzodiazepines Scrn Presumptive negative 12/20/19 Unknown Urine Cocaine Screen Presumptive negative 12/20/19 Unknown U Marijuana (THC) Screen Presumptive positive 12/20/19 Unknown Drugs of Abuse Note Disclamer 12/20/19 Unknown Microbiology: Microbiology 12/21/19 04:30 Peritoneal Fluid Surgical Culture - Preliminary 12/21/19 00:00 Peripheral/Venous Blood Culture - Preliminary Culture in Progress 12/21/19 00:32 Peripheral/Venous Blood Culture - Preliminary Culture in Progress Meeks/IV: IV Catheter Type [Right INT / Saline Lock Antecubital] IV Catheter Type [Left Forearm INT / Saline Lock ] Active Medications - Current Medications Current Medications: Generic Name Dose Route Start Last Admin Trade Name Freq PRN Reason Stop Dose Admin Piperacillin Sod/Tazobactam Sod 4.5 gm in 100 mls @ 200 mls/hr 12/21/19 06:00 Zosyn/Ns 4.5gm/100ml IV Q8HR REGGIE Protocol Dextrose/Sodium Chloride 1,000 mls @ 100 mls/hr 12/21/19 05:00 12/21/19 11:53 D5/0.45ns IV 100 mls/hr DIRECT REGGIE Administration Sodium Chloride 1,000 mls @ 999 mls/hr 12/21/19 15:00 Nacl 0.9% 1000 Ml IV 12/21/19 16:00 BOLUS ONE Morphine Sulfate 2 mg 12/21/19 00:12 12/21/19 02:54 Morphine IV 2 mg Q4H PRN Administration Pain, Moderate (4-6) Morphine Sulfate 4 mg 12/21/19 04:25 Morphine IV Q4H PRN Pain , Severe (7-10) Ondansetron HCl 4 mg 12/21/19 00:12 Zofran IV Q8H PRN Nausea And Vomiting Sodium Chloride 10 ml 12/21/19 08:00 Sodium Chloride Flush Syringe 10 Ml IV BID REGGIE Sodium Chloride 10 ml 12/21/19 00:12 Sodium Chloride Flush Syringe 10 Ml IV PRN PRN LINE FLUSH Nutrition/Malnutrition Assess - Dietary Evaluation Nutrition/Malnutrition Findings: Nutrition Notes Start: 12/21/19 08:59 Freq: Status: Active Protocol: Document 12/21/19 08:59 FRANCISCA (Rec: 12/21/19 09:27 FRANCISCA [id number]) Co-Sign 12/21/19 08:59 MK Nutrition Notes Need for Assessment generated from: MD Order Initial or Follow up Brief Note Current Diagnosis Sepsis Other Pertinent Diagnosis perforated appendicitis s/p appendectomy Current Diet NPO Subjective/Other Information Consulted for diet education. Pt adm with abdominal pain, N/ V, and ETOH binge (2 days). Pt recovering from appendectomy this AM and is NPO. Not appropriate for diet education at this time. Nutrition Intervention Follow-Up By: 12/22/19 Additional Comments F/u diet education needs.
[2019-12-21] MEDS ORDERED: SODIUM CHLORIDE 0.9% 1000 ML 1,000 ML IV ONE (15:00)
--- NOTE | 2019-12-21 15:18 | Consultation ---
History of Present Illness - Reason for Consult Consult date: 12/21/19 - History of Present Illness 19-year-old male no past medical history admitted to the hospital with abdominal pain with associated nausea and vomiting. He said he went out drinking for first birthday and then after that on admission to the hospital CT revealed a ruptured appendicitis the pain began., And he was taken to the OR yesterday for washout. Febrile to 101.7 degrees with a white count of 2.9. Currently on Zosyn. Surgical and blood cultures are currently pending. Imaging personally reviewed: CT abdomen pelvis: Ruptured appendicitis with peritonitis Review of Systems: Bold if positive, otherwise negative General: fevers, chills, rigors HEENT: visual disturbance, diplopia, eye pain Respiratory: cough, sputum, hemoptysis, shortness of breath Cardiovascular: chest pain, syncope Gastrointestinal: nausea, vomiting, diarrhea, abdominal pain Genitourinary: dysuria, hematuria, flank pain Musculoskeletal: neck pain, back pain, joint pain, edema Neurologic: headaches, seizures Hematologic: easy bruising or bleeding Endocrine: night sweats, acute weight loss Skin: rash, jaundice, redness Psychiatric: suicidal, homicidal ideation Past History Past Medical History: No medical history Past Surgical History: No surgical history Social history: no significant social history, alcohol abuse, other (Marijuana ) Family history: no significant family history Medications and Allergies Allergies Allergy/AdvReac Type Severity Reaction Status Date / Time No Known Allergies Allergy Verified 12/21/19 00:30 Home Medications Medication Instructions Recorded Confirmed Last Taken Type Hyoscyamine Subl [Levsin Sl 0.125 0.125 mg SL Q6HR PRN #20 tab 12/20/19 Unknown Rx TAB] Omeprazole 40 mg PO DAILY #30 capsule.dr 12/20/19 Unknown Rx Ondansetron [Zofran ODT TAB] 8 mg PO Q12HR #14 tab.rapdis 12/20/19 Unknown Rx Active Meds: Active Medications Piperacillin Sod/Tazobactam Sod (Zosyn/Ns 4.5gm/100ml) 4.5 gm in 100 mls @ 200 mls/hr IV Q8HR REGGIE; Protocol Dextrose/Sodium Chloride (D5/0.45ns) 1,000 mls @ 100 mls/hr IV DIRECT REGGIE Last Admin: 12/21/19 11:53 Dose: 100 mls/hr Documented by: Sodium Chloride (Nacl 0.9% 1000 Ml) 1,000 mls @ 999 mls/hr IV BOLUS ONE Stop: 12/21/19 16:00 Morphine Sulfate (Morphine) 2 mg IV Q4H PRN PRN Reason: Pain, Moderate (4-6) Last Admin: 12/21/19 02:54 Dose: 2 mg Documented by: Morphine Sulfate (Morphine) 4 mg IV Q4H PRN PRN Reason: Pain , Severe (7-10) Ondansetron HCl (Zofran) 4 mg IV Q8H PRN PRN Reason: Nausea And Vomiting Sodium Chloride (Sodium Chloride Flush Syringe 10 Ml) 10 ml IV BID REGGIE Sodium Chloride (Sodium Chloride Flush Syringe 10 Ml) 10 ml IV PRN PRN PRN Reason: LINE FLUSH Physical Examination - Physical Exam Narrative exam: Physical Exam: Constitutional: Alert, cooperative. No acute distress Head, Ears, Nose: Normocephalic, atraumatic. External ears, nose normal Eyes: Conjunctivae/corneas clear. No icterus. No ptosis. Neck: Supple, no meningeal signs Oral: dentition fair, no thrush Cardiovascular: S1, S2 normal. Respiratory: Good air entry, clear to auscultation bilaterally GI: Soft, appropriate tenderness over surgical site. Drain in place Musculoskeletal: No pedal edema, no cyanosis. Skin: No rash or abscess Hem/Lymphatic: No palpable cervical or supraclavicular nodes. No lymphangitis Psych: Mood ok. Affect normal Neurological: Awake, alert, oriented. No gross abnormality - Constitutional Vitals: Vital Signs Temp Pulse Resp BP Pulse Ox 101.7 F H 122 H 18 133/85 97 12/21/19 11:18 12/21/19 11:18 12/21/19 11:18 12/21/19 11:18 12/21/19 11:18 Temperature -Last 24 Hours Temperature 101.7 F Temperature 97.8 F Temperature 99.6 F Temperature 99.6 F Temperature 99.3 F Temperature 99.6 F Temperature 99.5 F Temperature 98.4 F Results - Labs CBC & Chem 7: 12/20/19 19:50 12/20/19 19:50 Labs: Abnormal lab results 12/20/19 12/20/19 12/21/19 Range/Units 19:50 19:50 00:00 WBC 2.9 L (4.5-11.0) K/mm3 RBC 7.05 H (3.65-5.03) M/mm3 Hgb 18.2 H (11.8-15.2) gm/dl Hct 55.1 H D (35.5-45.6) % MCV 78 L (84-94) fl MCH 26 L (28-32) pg Monocytes % (Manual) 8.0 H (0.0-7.3) % Lymphocytes # (Manual) 0.7 L (1.2-5.4) K/mm3 PT (12.2-14.9) Sec. INR (0.87-1.13) POC ABG pCO2 (32.0-48.0) mmHg POC ABG pO2 (83-108) mmHg ABG Sodium (136.0-145.0) mmol/L ABG Glucose (65-95) mg/dL Sodium 132 L D (137-145) mmol/L Chloride 90.2 L (98-107) mmol/L Carbon Dioxide 21 L (22-30) mmol/L Creatinine 1.4 H (0.8-1.3) mg/dL Glucose 134 H (75-100) mg/dL Lactic Acid 3.00 H* (0.7-2.0) mmol/L Total Bilirubin 1.40 H (0.1-1.2) mg/dL Direct Bilirubin 0.4 H (0-0.2) mg/dL Total Protein 8.4 H (6.3-8.2) g/dL Lipase 6 L (13-60) units/L Arterial Blood Glucose (65-95) mg/dL Arterial Blood Ionized Calcium (4.6-5.3) mg/dL 12/21/19 12/21/19 12/21/19 Range/Units 00:06 02:45 06:02 WBC (4.5-11.0) K/mm3 RBC (3.65-5.03) M/mm3 Hgb (11.8-15.2) gm/dl Hct (35.5-45.6) % MCV (84-94) fl MCH (28-32) pg Monocytes % (Manual) (0.0-7.3) % Lymphocytes # (Manual) (1.2-5.4) K/mm3 PT 18.5 H (12.2-14.9) Sec. INR 1.52 H (0.87-1.13) POC ABG pCO2 (32.0-48.0) mmHg POC ABG pO2 (83-108) mmHg ABG Sodium (136.0-145.0) mmol/L ABG Glucose (65-95) mg/dL Sodium (137-145) mmol/L Chloride (98-107) mmol/L Carbon Dioxide (22-30) mmol/L Creatinine (0.8-1.3) mg/dL Glucose (75-100) mg/dL Lactic Acid 3.70 H* 2.50 H* (0.7-2.0) mmol/L Total Bilirubin (0.1-1.2) mg/dL Direct Bilirubin (0-0.2) mg/dL Total Protein (6.3-8.2) g/dL Lipase (13-60) units/L Arterial Blood Glucose (65-95) mg/dL Arterial Blood Ionized Calcium (4.6-5.3) mg/dL 12/21/19 12/21/19 Range/Units 14:27 Unknown WBC (4.5-11.0) K/mm3 RBC (3.65-5.03) M/mm3 Hgb (11.8-15.2) gm/dl Hct (35.5-45.6) % MCV (84-94) fl MCH (28-32) pg Monocytes % (Manual) (0.0-7.3) % Lymphocytes # (Manual) (1.2-5.4) K/mm3 PT (12.2-14.9) Sec. INR (0.87-1.13) POC ABG pCO2 26.0 L (32.0-48.0) mmHg POC ABG pO2 119.5 H (83-108) mmHg ABG Sodium 130.0 L (136.0-145.0) mmol/L ABG Glucose 101 H (65-95) mg/dL Sodium (137-145) mmol/L Chloride (98-107) mmol/L Carbon Dioxide (22-30) mmol/L Creatinine (0.8-1.3) mg/dL Glucose (75-100) mg/dL Lactic Acid 2.50 H* (0.7-2.0) mmol/L Total Bilirubin (0.1-1.2) mg/dL Direct Bilirubin (0-0.2) mg/dL Total Protein (6.3-8.2) g/dL Lipase (13-60) units/L Arterial Blood Glucose 101 H (65-95) mg/dL Arterial Blood Ionized Calcium 4.3 L (4.6-5.3) mg/dL Assessment and Plan Cultures: Blood culture 12/21/2019 pending Surgical culture 12/21/2019 pending A/P: 19-year-old man no past medical history admitted with rupture appendicitis. #Acute sepsis: Present with fevers and leukopenia. Secondary to ruptured appendicitis. #Ruptured appendicitis: Agree with Zosyn, cultures are currently pending. Washout performed, drain in place. #Leukopenia: Likely secondary to acute illness Recs: -Continue Zosyn -Add fluconazole 40 mg every 24 hours -Follow-up blood and surgical cultures -Follow white blood cell count to ensure resolved with appropriate treatment. Thank you for the consult, we will continue to follow. Noé Flores MD [facility] ([facility] M: [phone] O: [phone] F: [phone]
[2019-12-21 16:04] LABS: Alanine Aminotransferase 8 units/L (7-56); Albumin 2.7 g/dL (3.9-5); BUN/Creatinine Ratio 14; Blood Urea Nitrogen 13 mg/dL (9-20); Calcium 7.9 mg/dL (8.4-10.2); Hemolysis Index 1
[2019-12-21] MEDS: PIPERACIL/TAZOBACTA 4.5/NS 100 4.5 GM/100 ML VIAL IV SCH ×3 (16:46→22:15)
--- NOTE | 2019-12-21 17:26 | Event Note ---
Date: 12/21/19 POD 0, VSS AF, feels better, purulent peritonitis secondary to ruptured appendix, appreciate INF DZ input. d/c NG and kvng, remain NPO, ice chips only,open wound, will eventually perform delayed closure of skin, serial labs. mobilize, continue KERWIN drain.
[2019-12-21] MEDS: ACETAMINOPHEN 325 MG TAB PO PRN (20:52)
[2019-12-22 06:04] LABS: Basophils % (Auto) 0.3 % (0.0-1.8); Eosinophils % (Auto) 0.1 % (0.0-4.3); Hematocrit 40.4 % (35.5-45.6); Hemoglobin 13.5 gm/dl (11.8-15.2); Lymphocytes # (Auto) 0.6 K/mm3 (1.2-5.4); Lymphocytes % (Auto) 6.4 % (13.4-35.0); Mean Corpuscular HGB Conc 33 % (32-34); Mean Corpuscular Volume 78 fl (84-94); Monocytes # (Auto) 0.3 K/mm3 (0.0-0.8); Monocytes % (Auto) 3.2 % (0.0-7.3); Platelet Count 122 K/mm3 (140-440); Red Blood Count 5.17 M/mm3 (3.65-5.03); Red Cell Distribution Width 14.6 % (13.2-15.2)
[2019-12-22] MEDS: PIPERACIL/TAZOBACTA 4.5/NS 100 4.5 GM/100 ML VIAL IV SCH ×3 (06:13→21:31)
[2019-12-22] MEDS: ACETAMINOPHEN 325 MG TAB PO PRN (06:22)
--- NOTE | 2019-12-22 06:54 | Progress Note ---
Assessment and Plan Assessment and plan: 19-year-old -Swedish male with no significant past medical history who presents to the emergency room today complaining of abdominal pain with associated nausea and vomiting. Patient states he was celebrating his 19st birthday and went on the binge drinking of alcohol. He thereafter started having nausea and vomiting with the associated abdominal pain. Abdominal pain is said to be epigastric and later became generalized.. There was a plan for patient to be discharged from the emergency room when he suddenly became hypotensive, tachycardic, tachypneic and diaphoretic I was further reevaluated by the ER physician for CT of the abdomen and pelvis. CT of the abdomen and pelvis however reveals : Ruptured viscus in the right lower quadrant, likely ruptured appendicitis. In addition to small amount of mesenteric gas and trace pneumoperitoneum, there is ascites. There is suggestion of mild peritoneal enhancement which is concerning for peritonitis. Small bowel inflammation is likely reactive related to the free fluid/peritonitis. General surgeon on-call was consulted by the ER physician for evaluation. Patient has been admitted for ruptured appendicitis and or peritonitis. He has been started on IV fluid and empiric IV antibiotics 12/21: Continue hydration and NPO. Pain management per surgeon, wound care consulted, rehab when wound closure achieved.Lekupenia resolved. Monitor fever curve ID input noted continue Zosyn fluconazole added. Sepsis secondary to perforated appendicitis s/p Open appendectomy feculant peritonitis, air in some mesenteric vein YAHIR SECONDARY TO Vasomotor nephropathy Leukopenia Hyperblirubenmia Hyponatremia Plan Continue supportive care Wound closer to be done with by surgery Pain control Give additional bolus of fluids due to tachycadia Check renal function in am ID consult Continue emperic antibiotics and monitor AM labs DVT/GI PROPHY History Interval history: Patient seen and examined, reports no distress except surgical pain. NG tube is out Hospitalist Physical - Physical exam Narrative exam: General appearance: no acute distress, alert Eyes: non-icteric ENT: oropharynx moist, NGT inplace Neck: supple, no JVD Effort: normal Ascultation: Bilateral: diminished breath sounds Cardiovascular: regular rate and rhythm Gastrointestinal: hypoactive bowel sounds, tender, Dressing noted, open surgical abdomen Integumentary: normal Extremities: no cyanosis, no edema Musculoskeletal: no deformities Gait: other (Resting in bed at this time.) normal mental status, non-focal exam, pupils equal and round, CN II-XII normal mood appropriate - Constitutional Vitals: Temp Pulse Resp BP Pulse Ox 99.9 F H 100 H 17 112/70 96 12/22/19 05:32 12/22/19 05:32 12/22/19 06:22 12/22/19 05:32 12/22/19 05:32 General appearance: Present: mild distress, well-nourished HEART Score - HEART Score Troponin: Troponin T < 0.010 ng/mL (0.00-0.029) 12/20/19 23:09 Results - Labs CBC & Chem 7: 12/22/19 05:00 12/21/19 15:18 Labs: Laboratory Last Values WBC 9.4 K/mm3 (4.5-11.0) 12/22/19 05:00 RBC 5.17 M/mm3 (3.65-5.03) H 12/22/19 05:00 Hgb 13.5 gm/dl (11.8-15.2) D 12/22/19 05:00 Hct 40.4 % (35.5-45.6) D 12/22/19 05:00 MCV 78 fl (84-94) L 12/22/19 05:00 MCH 26 pg (28-32) L 12/22/19 05:00 MCHC 33 % (32-34) 12/22/19 05:00 RDW 14.6 % (13.2-15.2) 12/22/19 05:00 Plt Count 122 K/mm3 (140-440) L 12/22/19 05:00 Lymph % (Auto) 6.4 % (13.4-35.0) L 12/22/19 05:00 [place] % (Auto) 3.2 % (0.0-7.3) 12/22/19 05:00 Eos % (Auto) 0.1 % (0.0-4.3) 12/22/19 05:00 Baso % (Auto) 0.3 % (0.0-1.8) 12/22/19 05:00 Lymph # (Auto) 0.6 K/mm3 (1.2-5.4) L 12/22/19 05:00 [place] # (Auto) 0.3 K/mm3 (0.0-0.8) 12/22/19 05:00 Eos # (Auto) 0.0 K/mm3 (0.0-0.4) 12/22/19 05:00 Baso # (Auto) 0.0 K/mm3 (0.0-0.1) 12/22/19 05:00 Add Manual Diff Complete 12/20/19 19:50 Total Counted 100 12/20/19 19:50 Seg Neutrophils % 90.0 % (40.0-70.0) H 12/22/19 05:00 Seg Neuts % (Manual) 62.0 % (40.0-70.0) 12/20/19 19:50 Band Neutrophils % 6.0 % 12/20/19 19:50 Lymphocytes % (Manual) 24.0 % (13.4-35.0) 12/20/19 19:50 Reactive Lymphs % (Man) 0 % 12/20/19 19:50 Monocytes % (Manual) 8.0 % (0.0-7.3) H 12/20/19 19:50 Eosinophils % (Manual) 0 % (0.0-4.3) 12/20/19 19:50 Basophils % (Manual) 0 % (0.0-1.8) 12/20/19 19:50 Metamyelocytes % 0 % 12/20/19 19:50 Myelocytes % 0 % 12/20/19 19:50 Promyelocytes % 0 % 12/20/19 19:50 Blast Cells % 0 % 12/20/19 19:50 Nucleated RBC % Not Reportable 12/20/19 19:50 Seg Neutrophils # 8.4 K/mm3 (1.8-7.7) H 12/22/19 05:00 Seg Neutrophils # Man 1.8 K/mm3 (1.8-7.7) 12/20/19 19:50 Band Neutrophils # 0.2 K/mm3 12/20/19 19:50 Lymphocytes # (Manual) 0.7 K/mm3 (1.2-5.4) L 12/20/19 19:50 Abs React Lymphs (Man) 0.0 K/mm3 12/20/19 19:50 Monocytes # (Manual) 0.2 K/mm3 (0.0-0.8) 12/20/19 19:50 Eosinophils # (Manual) 0.0 K/mm3 (0.0-0.4) 12/20/19 19:50 Basophils # (Manual) 0.0 K/mm3 (0.0-0.1) 12/20/19 19:50 Metamyelocytes # 0.0 K/mm3 12/20/19 19:50 Myelocytes # 0.0 K/mm3 12/20/19 19:50 Promyelocytes # 0.0 K/mm3 12/20/19 19:50 Blast Cells # 0.0 K/mm3 12/20/19 19:50 WBC Morphology Not Reportable 12/20/19 19:50 Hypersegmented Neuts Not Reportable 12/20/19 19:50 Hyposegmented Neuts Not Reportable 12/20/19 19:50 Hypogranular Neuts Not Reportable 12/20/19 19:50 Smudge Cells Not Reportable 12/20/19 19:50 Toxic Granulation Not Reportable 12/20/19 19:50 Toxic Vacuolation Not Reportable 12/20/19 19:50 Dohle Bodies Not Reportable 12/20/19 19:50 Pelger-Huet Anomaly Not Reportable 12/20/19 19:50 Manas Rods Not Reportable 12/20/19 19:50 Platelet Estimate Consistent w auto 12/20/19 19:50 Clumped Platelets Not Reportable 12/20/19 19:50 Plt Clumps, EDTA Not Reportable 12/20/19 19:50 Large Platelets Not Reportable 12/20/19 19:50 Giant Platelets Not Reportable 12/20/19 19:50 Platelet Satelliting Not Reportable 12/20/19 19:50 Plt Morphology Comment Not Reportable 12/20/19 19:50 RBC Morphology Not Reportable 12/20/19 19:50 Dimorphic RBCs Not Reportable 12/20/19 19:50 Polychromasia Not Reportable 12/20/19 19:50 Hypochromasia 1+ 12/20/19 19:50 Poikilocytosis Not Reportable 12/20/19 19:50 Anisocytosis Not Reportable 12/20/19 19:50 Microcytosis Not Reportable 12/20/19 19:50 Macrocytosis Not Reportable 12/20/19 19:50 Spherocytes Not Reportable 12/20/19 19:50 Pappenheimer Bodies Not Reportable 12/20/19 19:50 Sickle Cells Not Reportable 12/20/19 19:50 Target Cells Not Reportable 12/20/19 19:50 Tear Drop Cells Not Reportable 12/20/19 19:50 Ovalocytes Few 12/20/19 19:50 Helmet Cells Not Reportable 12/20/19 19:50 [place] Bodies Not Reportable 12/20/19 19:50 [place] Rings Not Reportable 12/20/19 19:50 [place] Cells Not Reportable 12/20/19 19:50 Bite Cells Not Reportable 12/20/19 19:50 Crenated Cell Not Reportable 12/20/19 19:50 Elliptocytes Not Reportable 12/20/19 19:50 Acanthocytes (Spur) Not Reportable 12/20/19 19:50 Rouleaux Not Reportable 12/20/19 19:50 Hemoglobin C Crystals Not Reportable 12/20/19 19:50 Schistocytes Not Reportable 12/20/19 19:50 Malaria parasites Not Reportable 12/20/19 19:50 [place] Bodies Not Reportable 12/20/19 19:50 Hem Pathologist Commnt No 12/20/19 19:50 PT 18.5 Sec. (12.2-14.9) H 12/21/19 00:06 INR 1.52 (0.87-1.13) H 12/21/19 00:06 APTT 32.6 Sec. (24.2-36.6) 12/21/19 00:06 ABG pH 7.444 (7.320-7.450) 12/21/19 Unknown POC ABG pCO2 26.0 mmHg (32.0-48.0) L 12/21/19 Unknown POC ABG pO2 119.5 mmHg (83-108) H 12/21/19 Unknown POC ABG HCO3 17.5 12/21/19 Unknown POC ABG Base Excess -4.6 12/21/19 Unknown ABG Hemoglobin 16 (12.0-17.5) 12/21/19 Unknown ABG Sodium 130.0 mmol/L (136.0-145.0) L 12/21/19 Unknown ABG Potassium 3.8 mmol/L (3.40-4.50) 12/21/19 Unknown ABG Chloride 104.0 mmol/L (98-107) 12/21/19 Unknown ABG Glucose 101 mg/dL (65-95) H 12/21/19 Unknown FiO2 21 12/21/19 Unknown Sodium 133 mmol/L (137-145) L 12/21/19 15:18 Potassium 4.0 mmol/L (3.6-5.0) 12/21/19 15:18 Chloride 101.0 mmol/L (98-107) 12/21/19 15:18 Carbon Dioxide 21 mmol/L (22-30) L 12/21/19 15:18 Anion Gap 15 mmol/L 12/21/19 15:18 BUN 13 mg/dL (9-20) 12/21/19 15:18 Creatinine 0.9 mg/dL (0.8-1.3) 12/21/19 15:18 Estimated GFR > 60 ml/min 12/21/19 15:18 BUN/Creatinine Ratio 14 % 12/21/19 15:18 Glucose 138 mg/dL (75-100) H 12/21/19 15:18 Lactic Acid 2.20 mmol/L (0.7-2.0) H* 12/21/19 15:18 Calcium 7.9 mg/dL (8.4-10.2) L D 12/21/19 15:18 Total Bilirubin 0.60 mg/dL (0.1-1.2) 12/21/19 15:18 Direct Bilirubin 0.4 mg/dL (0-0.2) H 12/20/19 19:50 Indirect Bilirubin 1.0 mg/dL 12/20/19 19:50 AST 15 units/L (5-40) 12/21/19 15:18 ALT 8 units/L (7-56) 12/21/19 15:18 Alkaline Phosphatase 36 units/L (35-129) 12/21/19 15:18 Troponin T < 0.010 ng/mL (0.00-0.029) 12/20/19 23:09 Total Protein 5.8 g/dL (6.3-8.2) L D 12/21/19 15:18 Albumin 2.7 g/dL (3.9-5) L 12/21/19 15:18 Albumin/Globulin Ratio 0.9 % 12/21/19 15:18 Lipase 6 units/L (13-60) L 12/20/19 19:50 Arterial Blood Glucose 101 mg/dL (65-95) H 12/21/19 Unknown Arterial Blood Ionized Calcium 4.3 mg/dL (4.6-5.3) L 12/21/19 Unknown Urine Color Yellow (Yellow) 12/20/19 Unknown Urine Turbidity Slightly-cloudy (Clear) 12/20/19 Unknown Urine pH 5.0 (5.0-7.0) 12/20/19 Unknown Ur Specific [place] 1.014 (1.003-1.030) 12/20/19 Unknown Urine Protein 30 mg/dl mg/dL (Negative) 12/20/19 Unknown Urine Glucose (UA) Neg mg/dL (Negative) 12/20/19 Unknown Urine Ketones Neg mg/dL (Negative) 12/20/19 Unknown Urine Blood Sm (Negative) 12/20/19 Unknown Urine Nitrite Neg (Negative) 12/20/19 Unknown Urine Bilirubin Neg (Negative) 12/20/19 Unknown Urine Urobilinogen < 2.0 mg/dL (<2.0) 12/20/19 Unknown Ur Leukocyte Esterase Neg (Negative) 12/20/19 Unknown Urine WBC (Auto) 1.0 /HPF (0.0-6.0) 12/20/19 Unknown Urine RBC (Auto) 1.0 /HPF (0.0-6.0) 12/20/19 Unknown Urine Mucus Few /HPF 12/20/19 Unknown Urine Opiates Screen Presumptive negative 12/20/19 Unknown Urine Methadone Screen Presumptive negative 12/20/19 Unknown Ur Barbiturates Screen Presumptive negative 12/20/19 Unknown Ur Phencyclidine Scrn Presumptive negative 12/20/19 Unknown Ur Amphetamines Screen Presumptive negative 12/20/19 Unknown U Benzodiazepines Scrn Presumptive negative 12/20/19 Unknown Urine Cocaine Screen Presumptive negative 12/20/19 Unknown U Marijuana (THC) Screen Presumptive positive 12/20/19 Unknown Drugs of Abuse Note Disclamer 12/20/19 Unknown Microbiology: Microbiology 12/21/19 00:00 Peripheral/Venous Blood Culture - Preliminary NO GROWTH AFTER 24 HOURS 12/21/19 00:32 Peripheral/Venous Blood Culture - Preliminary NO GROWTH AFTER 24 HOURS 12/21/19 04:30 Peritoneal Fluid Surgical Culture - Preliminary Meeks/IV: Voiding Method Toilet IV Catheter Type [Right INT / Saline Lock Antecubital] IV Catheter Type [Left Forearm INT / Saline Lock ] Active Medications - Current Medications Current Medications: Generic Name Dose Route Start Last Admin Trade Name Freq PRN Reason Stop Dose Admin Acetaminophen 650 mg 12/21/19 20:31 12/22/19 06:22 Tylenol PO 650 mg Q4H PRN Administration Pain, Mild (1-3) Piperacillin Sod/Tazobactam Sod 4.5 gm in 100 mls @ 200 mls/hr 12/21/19 06:00 12/22/19 06:13 Zosyn/Ns 4.5gm/100ml IV 200 mls/hr Q8HR REGGIE Administration Protocol Dextrose/Sodium Chloride 1,000 mls @ 100 mls/hr 12/21/19 05:00 12/21/19 22:13 D5/0.45ns IV 100 mls/hr DIRECT REGGIE Administration Morphine Sulfate 2 mg 12/21/19 00:12 12/21/19 02:54 Morphine IV 2 mg Q4H PRN Administration Pain, Moderate (4-6) Morphine Sulfate 4 mg 12/21/19 04:25 Morphine IV Q4H PRN Pain , Severe (7-10) Ondansetron HCl 4 mg 12/21/19 00:12 Zofran IV Q8H PRN Nausea And Vomiting Sodium Chloride 10 ml 12/21/19 08:00 12/21/19 16:59 Sodium Chloride Flush Syringe 10 Ml IV Not Given BID REGGIE Sodium Chloride 10 ml 12/21/19 00:12 12/21/19 22:16 Sodium Chloride Flush Syringe 10 Ml IV 10 ml PRN PRN Administration LINE FLUSH Nutrition/Malnutrition Assess - Dietary Evaluation Nutrition/Malnutrition Findings: Nutrition Notes Start: 12/21/19 08:59 Freq: Status: Active Protocol: Document 12/21/19 08:59 FRANCISCA (Rec: 12/21/19 09:27 FRANCISCA [id number]) Co-Sign 12/21/19 08:59 MK Nutrition Notes Need for Assessment generated from: MD Order Initial or Follow up Brief Note Current Diagnosis Sepsis Other Pertinent Diagnosis perforated appendicitis s/p appendectomy Current Diet NPO Subjective/Other Information Consulted for diet education. Pt adm with abdominal pain, N/ V, and ETOH binge (2 days). Pt recovering from appendectomy this AM and is NPO. Not appropriate for diet education at this time. Nutrition Intervention Follow-Up By: 12/22/19 Additional Comments F/u diet education needs.
[2019-12-22] MEDS: D5W/0.45% NACL 1,000 ML IV SCH (07:39)
[2019-12-22] MEDS: FLUCONAZOLE 400 MG 200 ML IV SCH (11:08)
--- NOTE | 2019-12-22 15:04 | Progress Note ---
Assessment and Plan Cultures: Blood culture 12/21/2019 pending Surgical culture 12/21/2019 pending A/P: 19-year-old man no past medical history admitted with rupture appendicitis. #Acute sepsis: Present with fevers and leukopenia. Secondary to ruptured kyle endicitis. Improving #Ruptured appendicitis: Agree with Zosyn, cultures are currently pending. Wa shout performed, drain in place. #Leukopenia: Likely secondary to acute illness, resolved Recs: -Continue Zosyn -Continue fluconazole 400 mg every 24 hours -Follow-up blood and surgical cultures -Noted plan for delayed primary closure. Thank you for the consult, we will continue to follow. Noé Flores MD [facility] ([facility]) M: [phone] O: [phone] F: [phone] Subjective Date of service: 12/22/19 Interval history: Afebrile with a T-max of 100.1 degrees, white count is returned to normal at 9.4. Objective - Exam Narrative Exam: Physical Exam: Constitutional: Alert, cooperative. No acute distress Head, Ears, Nose: Normocephalic, atraumatic. External ears, nose normal Eyes: Conjunctivae/corneas clear. No icterus. No ptosis. Neck: Supple, no meningeal signs Oral: dentition fair, no thrush Cardiovascular: S1, S2 normal. Respiratory: Good air entry, clear to auscultation bilaterally GI: Soft, appropriate tenderness over surgical site. Drain in place, open wound dressed. Musculoskeletal: No pedal edema, no cyanosis. Skin: No rash or abscess Hem/Lymphatic: No palpable cervical or supraclavicular nodes. No lymphangitis Psych: Mood ok. Affect normal Neurological: Awake, alert, oriented. No gross abnormality - Constitutional Vitals: Vital Signs Temp Pulse Resp BP Pulse Ox 98.4 F 94 H 30 H 116/84 94 12/22/19 13:00 12/22/19 13:00 12/22/19 13:00 12/22/19 13:00 12/22/19 13:00 Temperature -Last 24 Hours Temperature 98.4 F Temperature 100.1 F Temperature 100.1 F Temperature 99.9 F Temperature 100.0 F Temperature 100.7 F Temperature 101.9 F Temperature 98.3 F - Labs CBC & Chem 7: 10/14/20 05:00 12/21/19 15:18 Labs: Abnormal lab results 12/21/19 12/21/19 12/22/19 Range/Units 15:18 15:18 05:00 RBC 5.17 H (3.65-5.03) M/mm3 MCV 78 L (84-94) fl MCH 26 L (28-32) pg Plt Count 122 L (140-440) K/mm3 Lymph % (Auto) 6.4 L (13.4-35.0) % Lymph # (Auto) 0.6 L (1.2-5.4) K/mm3 Seg Neutrophils % 90.0 H (40.0-70.0) % Seg Neutrophils # 8.4 H (1.8-7.7) K/mm3 Sodium 133 L (137-145) mmol/L Carbon Dioxide 21 L (22-30) mmol/L Glucose 138 H (75-100) mg/dL Lactic Acid 2.20 H* (0.7-2.0) mmol/L Calcium 7.9 L D (8.4-10.2) mg/dL Total Protein 5.8 L D (6.3-8.2) g/dL Albumin 2.7 L (3.9-5) g/dL
[2019-12-22] MEDS: oxyCODONE /ACETAMINOPHEN 5-325MG TAB PO PRN ×2 (16:10→21:31)
--- NOTE | 2019-12-22 17:17 | Progress Note ---
Assessment and Plan Patient alert, awake. No complaint of chest pain, shortness of breath or cough. O2 saturation on room air 98%. Recommend contine incentive spirometry. - Patient Problems (1) Acute perforated appendicitis Current Visit: Yes Status: Acute Plan to address problem: Patient undergone exploratory laporotomy Appendectomy and repair of perforated Appendex and peritoneal wash out. (2) Pneumoperitoneum Current Visit: Yes Status: Acute Plan to address problem: From perforated viscous. Perforated viscus repaired. (3) Sepsis Current Visit: Yes Status: Acute Plan to address problem: Patient is on zosyn. (4) Peritonitis Current Visit: Yes Status: Acute Plan to address problem: Peritoneal wash out. patient is on zosyn. Subjective Date of service: 12/22/19 Interval history: Patient alert, awake. No complaint of chest pain, shortness of breath or cough. O2 saturation on room air 98%. Recommend contine incentive spirometry. Objective Vital Signs - 12hr 12/22/19 12/22/19 12/22/19 05:32 06:22 06:48 Temperature 99.9 F H 100.1 F H Pulse Rate 100 H Respiratory 18 17 18 Rate Blood Pressure 112/70 116/73 Blood Pressure [Right] O2 Sat by Pulse 96 Oximetry 12/22/19 12/22/19 12/22/19 07:40 10:00 13:00 Temperature 100.1 F H 98.4 F Pulse Rate 95 H 94 H Respiratory 18 30 H Rate Blood Pressure Blood Pressure 116/73 116/84 [Right] O2 Sat by Pulse 96 96 94 Oximetry 12/22/19 15:17 Temperature 99.0 F Pulse Rate 89 Respiratory 18 Rate Blood Pressure 113/71 Blood Pressure [Right] O2 Sat by Pulse 98 Oximetry Constitutional: no acute distress, alert Eyes: non-icteric ENT: oropharynx moist Neck: supple, no JVD Effort: normal Ascultation: Bilateral: diminished breath sounds Cardiovascular: regular rate and rhythm Gastrointestinal: hypoactive bowel sounds, tender Integumentary: normal Extremities: no cyanosis, no edema Neurologic: normal mental status, non-focal exam, pupils equal and round, CN II- XII normal Psychiatric: mood appropriate CBC and BMP: 12/23/19 08:43 12/23/19 08:43 ABG, PT/INR, D-dimer: ABG ABG pH 7.444 (7.320-7.450) 12/21/19 Unknown POC ABG pCO2 26.0 mmHg (32.0-48.0) L 12/21/19 Unknown POC ABG pO2 119.5 mmHg (83-108) H 12/21/19 Unknown POC ABG HCO3 17.5 12/21/19 Unknown PT/INR, D-dimer PT 18.5 Sec. (12.2-14.9) H 12/21/19 00:06 INR 1.52 (0.87-1.13) H 12/21/19 00:06 Abnormal lab findings: Abnormal Labs 12/20/19 12/20/19 12/21/19 19:50 19:50 00:00 WBC 2.9 L RBC 7.05 H Hgb 18.2 H Hct 55.1 H D MCV 78 L MCH 26 L Plt Count Lymph % (Auto) Lymph # (Auto) Seg Neutrophils % Monocytes % (Manual) 8.0 H Seg Neutrophils # Lymphocytes # (Manual) 0.7 L PT INR POC ABG pCO2 POC ABG pO2 ABG Sodium ABG Glucose Sodium 132 L D Chloride 90.2 L Carbon Dioxide 21 L Creatinine 1.4 H Glucose 134 H Lactic Acid 3.00 H* Calcium Total Bilirubin 1.40 H Direct Bilirubin 0.4 H Total Protein 8.4 H Albumin Lipase 6 L Arterial Blood Glucose Arterial Blood Ionized Calcium 12/21/19 12/21/19 12/21/19 00:06 02:45 06:02 WBC RBC Hgb Hct MCV MCH Plt Count Lymph % (Auto) Lymph # (Auto) Seg Neutrophils % Monocytes % (Manual) Seg Neutrophils # Lymphocytes # (Manual) PT 18.5 H INR 1.52 H POC ABG pCO2 POC ABG pO2 ABG Sodium ABG Glucose Sodium Chloride Carbon Dioxide Creatinine Glucose Lactic Acid 3.70 H* 2.50 H* Calcium Total Bilirubin Direct Bilirubin Total Protein Albumin Lipase Arterial Blood Glucose Arterial Blood Ionized Calcium 12/21/19 12/21/19 12/21/19 14:27 15:18 15:18 WBC RBC Hgb Hct MCV MCH Plt Count Lymph % (Auto) Lymph # (Auto) Seg Neutrophils % Monocytes % (Manual) Seg Neutrophils # Lymphocytes # (Manual) PT INR POC ABG pCO2 POC ABG pO2 ABG Sodium ABG Glucose Sodium 133 L Chloride Carbon Dioxide 21 L Creatinine Glucose 138 H Lactic Acid 2.50 H* 2.20 H* Calcium 7.9 L D Total Bilirubin Direct Bilirubin Total Protein 5.8 L D Albumin 2.7 L Lipase Arterial Blood Glucose Arterial Blood Ionized Calcium 12/21/19 12/22/19 Unknown 05:00 WBC RBC 5.17 H Hgb Hct MCV 78 L MCH 26 L Plt Count 122 L Lymph % (Auto) 6.4 L Lymph # (Auto) 0.6 L Seg Neutrophils % 90.0 H Monocytes % (Manual) Seg Neutrophils # 8.4 H Lymphocytes # (Manual) PT INR POC ABG pCO2 26.0 L POC ABG pO2 119.5 H ABG Sodium 130.0 L ABG Glucose 101 H Sodium Chloride Carbon Dioxide Creatinine Glucose Lactic Acid Calcium Total Bilirubin Direct Bilirubin Total Protein Albumin Lipase Arterial Blood Glucose 101 H Arterial Blood Ionized Calcium 4.3 L
[2019-12-22] MEDS ORDERED: SODIUM HYPOCHLORITE, DAKIN'S 1/2 STRENGTH (0.25%) 473 ML TOPICAL SOLN TP ONE (21:00)
[2019-12-22] MEDS: traZODone 50 MG TAB PO PRN (21:31)
[2019-12-23] MEDS: PIPERACIL/TAZOBACTA 4.5/NS 100 4.5 GM/100 ML VIAL IV SCH ×3 (05:34→21:42)
[2019-12-23] MEDS: D5W/0.45% NACL 1,000 ML IV SCH (05:35)
--- NOTE | 2019-12-23 07:10 | Progress Note ---
Assessment and Plan POD 2 VSS low grade temp, dressing changes in progress, one blood culture positive for gm negatives, peritoneal cultures positive for E coli/ sensitivities pending, will probably implement delayed wound closure tomorrow or Friday, duration of iv antibiotics per INF DZ/ controversial matter in view of the fact that source control has been established. Pt could go home on oral antibiotics with drain, but I will defer to INF DZ on this matter. NPO past midnight for delayed closure of abd wound depending on clinical course. I will adv diet as tolerated. Subjective Date of service: 12/23/19 Patient Reports: Positive: no new complaints Objective Vital Signs - 12hr 12/22/19 12/22/19 12/23/19 20:14 23:01 06:20 Temperature 100.1 F H 99.4 F 98.2 F Pulse Rate 99 H 92 H 86 Respiratory 18 18 18 Rate Blood Pressure 113/73 113/70 117/77 O2 Sat by Pulse 98 96 95 Oximetry - Labs 12/22/19 05:00 12/21/19 15:18
[2019-12-23 09:15] LABS: Hematocrit 38.1 % (35.5-45.6); Hemoglobin 12.7 gm/dl (11.8-15.2); Mean Corpuscular HGB Conc 33 % (32-34); Mean Corpuscular Volume 77 fl (84-94); Platelet Count 141 K/mm3 (140-440); Red Blood Count 4.95 M/mm3 (3.65-5.03); Red Cell Distribution Width 14.9 % (13.2-15.2)
[2019-12-23] MEDS: FLUCONAZOLE 400 MG 200 ML IV SCH (09:37)
[2019-12-23 09:38] LABS: BUN/Creatinine Ratio 18; Blood Urea Nitrogen 14 mg/dL (9-20); Calcium 8.7 mg/dL (8.4-10.2); Hemolysis Index 7
[2019-12-23] MEDS: oxyCODONE /ACETAMINOPHEN 5-325MG TAB PO PRN (13:30)
--- NOTE | 2019-12-23 14:24 | Event Note ---
Date: 12/23/19 I have decided to perform delayed closure of abd wound Friday. Adv to regular diet as tolerated.
--- NOTE | 2019-12-23 14:52 | Progress Note ---
Assessment and Plan Cultures: Blood culture 12/21/2019 pending Surgical culture 12/21/2019 Pseudomonas pansensitive A/P: 19-year-old man no past medical history admitted with rupture appendicitis. #Acute sepsis: Present with fevers and leukopenia. Secondary to ruptured appendicitis. Resolved #Ruptured appendicitis: Cultures with Pseudomonas. Closure to be performed on Friday. #Leukopenia: Likely secondary to acute illness, resolved Recs: -Continue Zosyn for now while inpatient -Continue fluconazole 400 mg every 24 hours -Agree with being able to discharge on oral antibiotics, source control is been obtained will need short course. -Plan on discharge with levofloxacin 750 mg every 24 hours, metronidazole 500 mg every 8 hours, fluconazole 400 mg separately 4 hours to complete 7 days post washout. Thank you for the consult, we will continue to follow. Noé Flores MD [facility] ([facility]) M: [phone] O: [phone] F: [phone] Subjective Date of service: 12/23/19 Interval history: Afebrile now, white count normal at 8.9. Surgical peritoneal culture with Pseudomonas. Noted general surgery is planning for delayed wound closure on . Objective - Exam Narrative Exam: Physical Exam: Constitutional: Alert, cooperative. No acute distress Head, Ears, Nose: Normocephalic, atraumatic. Eyes: Conjunctivae/corneas clear. No icterus. No ptosis. Neck: Supple, no meningeal signs Oral: dentition fair, no thrush Cardiovascular: S1, S2 normal. Respiratory: Good air entry, clear to auscultation bilaterally GI: Soft, appropriate tenderness over surgical site. Drain in place, open wound dressed. Musculoskeletal: No pedal edema, no cyanosis. Skin: No rash or abscess Hem/Lymphatic: No palpable cervical or supraclavicular nodes. No lymphangitis Psych: Mood ok. Affect normal Neurological: Awake, alert, oriented. No gross abnormality - Constitutional Vitals: Vital Signs Temp Pulse Resp BP Pulse Ox 99.3 F 93 H 20 126/85 96 12/23/19 11:43 12/23/19 11:43 12/23/19 11:43 12/23/19 11:43 12/23/19 11:43 Temperature -Last 24 Hours Temperature 99.3 F Temperature 98.2 F Temperature 99.4 F Temperature 100.1 F Temperature 99.0 F - Labs CBC & Chem 7: 12/23/19 08:43 12/23/19 08:43 Labs: Abnormal lab results 12/23/19 12/23/19 Range/Units 08:43 08:43 MCV 77 L (84-94) fl MCH 26 L (28-32) pg Glucose 115 H (75-100) mg/dL
[2019-12-24] MEDS: D5W/0.45% NACL 1,000 ML IV SCH ×2 (00:14→14:10)
[2019-12-24] MEDS: traZODone 50 MG TAB PO PRN (00:14)
[2019-12-24] MEDS: oxyCODONE /ACETAMINOPHEN 5-325MG TAB PO PRN (00:14)
[2019-12-24] MEDS: PIPERACIL/TAZOBACTA 4.5/NS 100 4.5 GM/100 ML VIAL IV SCH ×4 (05:00→21:27)
--- NOTE | 2019-12-24 09:53 | Progress Note ---
Assessment and Plan Sepsis secondary to perforated appendicitis s/p Open appendectomy feculant peritonitis, air in some mesenteric vein YAHIR SECONDARY TO Vasomotor nephropathy Leukopenia Hyperblirubenmia Hyponatremia Plan Continue supportive care Wound closer to be done with by surgery Pain control Give additional bolus of fluids due to tachy[place] Check renal function in am ID consult appreciated Continue emperic antibiotics and monitor AM labs DVT/GI PROPHY Subjective Date of service: 12/23/19 Principal diagnosis: Acute appendicitis and sepsis secondary to perforation Interval history: 19-year-old -Irish male with no significant past medical history who presents to the emergency room today complaining of abdominal pain with associated nausea and vomiting. Patient states he was celebrating his 19st birthday and went on the binge drinking of alcohol. He thereafter started having nausea and vomiting with the associated abdominal pain. Abdominal pain is said to be epigastric and later became generalized.. There was a plan for patient to be discharged from the emergency room when he suddenly became hypotensive, tachycardic, tachypneic and diaphoretic I was further reevaluated by the ER physician for CT of the abdomen and pelvis. CT of the abdomen and pelvis however reveals : Ruptured viscus in the right lower quadrant, likely ruptured appendicitis. In addition to small amount of mesenteric gas and trace pneumoperitoneum, there is ascites. There is suggestion of mild peritoneal enhancement which is concerning for peritonitis. Small bowel inflammation is likely reactive related to the free fluid/peritonitis. General surgeon on-call was consulted by the ER physician for evaluation. Patient has been admitted for ruptured appendicitis and or peritonitis. He has been started on IV fluid and empiric IV antibiotics 12/21: Continue hydration and NPO. Pain management per surgeon, wound care consulted, rehab when wound closure achieved.Lekupenia resolved. Monitor fever curve ID input noted continue Zosyn fluconazole added. 12/23/2019 Continue IV antibiotics Objective - Constitutional Vitals: Vital Signs - 12hr 12/23/19 12/24/19 12/24/19 22:50 00:14 03:48 Temperature 100.0 F H 99.5 F Pulse Rate 97 H 86 Respiratory 18 20 18 Rate Blood Pressure 124/79 116/72 O2 Sat by Pulse 91 89 Oximetry 12/24/19 07:32 Temperature 98.8 F Pulse Rate 89 Respiratory 17 Rate Blood Pressure 118/79 O2 Sat by Pulse 96 Oximetry General appearance: Present: no acute distress, well-nourished - EENT Eyes: PERRL, EOM intact ENT: hearing intact, clear oral mucosa Ears: bilateral: normal - Neck Neck: supple, normal ROM - Respiratory Respiratory effort: normal Respiratory: bilateral: CTA - Breasts Breasts: normal - Cardiovascular Heart rate: 78 Rhythm: regular Heart Sounds: Present: S1 & S2. Absent: gallop, rub Extremities: pulses intact, No edema, normal color, Full ROM - Gastrointestinal General gastrointestinal: Present: soft, non-tender, non-distended, normal bowel sounds - Genitourinary Male genitourinary: normal - Integumentary Integumentary: clear, warm, dry - Musculoskeletal Musculoskeletal: 1, strength equal bilaterally - Neurologic Neurologic: moves all extremities - Psychiatric Psychiatric: memory intact, appropriate mood/affect, intact judgment & insight - Labs CBC & Chem 7: 12/23/19 08:43 12/23/19 08:43 HEART Score - HEART Score Troponin: Troponin T < 0.010 ng/mL (0.00-0.029) 12/20/19 23:09
[2019-12-24] MEDS: FLUCONAZOLE 400 MG 200 ML IV SCH (11:14)
--- NOTE | 2019-12-24 14:09 | Progress Note ---
Assessment and Plan Patient alert, awake. No complaint of chest pain, shortness of breath or cough. O2 saturation on room air 98%. Recommend contine incentive spirometry. - Patient Problems (1) Acute perforated appendicitis Current Visit: Yes Status: Acute Plan to address problem: Patient undergone exploratory laporotomy Appendectomy and repair of perforated Appendex and peritoneal wash out. (2) Pneumoperitoneum Current Visit: Yes Status: Acute Plan to address problem: From perforated viscous. Perforated viscus repaired. (3) Sepsis Current Visit: Yes Status: Acute Plan to address problem: Patient is on zosyn. (4) Peritonitis Current Visit: Yes Status: Acute Plan to address problem: Peritoneal wash out. patient is on zosyn. Subjective Date of service: 12/24/19 Interval history: Patient alert, awake. No complaint of chest pain, shortness of breath or cough. O2 saturation on room air 96%. Recommend contine incentive spirometry. Objective Vital Signs - 12hr 12/24/19 12/24/19 12/24/19 03:48 07:32 12:38 Temperature 99.5 F 98.8 F 98.4 F Pulse Rate 86 89 89 Respiratory 18 17 18 Rate Blood Pressure 116/72 118/79 Blood Pressure 133/84 [Right] O2 Sat by Pulse 89 96 96 Oximetry Constitutional: no acute distress, alert Eyes: non-icteric ENT: oropharynx moist Neck: supple, no JVD Effort: normal Ascultation: Bilateral: diminished breath sounds Cardiovascular: regular rate and rhythm Gastrointestinal: hypoactive bowel sounds, tender Integumentary: normal Extremities: no cyanosis, no edema Neurologic: normal mental status, non-focal exam, pupils equal and round, CN II- XII normal Psychiatric: mood appropriate CBC and BMP: 12/23/19 08:43 12/23/19 08:43 ABG, PT/INR, D-dimer: ABG ABG pH 7.444 (7.320-7.450) 12/21/19 Unknown POC ABG pCO2 26.0 mmHg (32.0-48.0) L 12/21/19 Unknown POC ABG pO2 119.5 mmHg (83-108) H 12/21/19 Unknown POC ABG HCO3 17.5 12/21/19 Unknown PT/INR, D-dimer PT 18.5 Sec. (12.2-14.9) H 12/21/19 00:06 INR 1.52 (0.87-1.13) H 12/21/19 00:06 Abnormal lab findings: Abnormal Labs 12/20/19 12/20/19 12/21/19 19:50 19:50 00:00 WBC 2.9 L RBC 7.05 H Hgb 18.2 H Hct 55.1 H D MCV 78 L MCH 26 L Plt Count Lymph % (Auto) Lymph # (Auto) Seg Neutrophils % Monocytes % (Manual) 8.0 H Seg Neutrophils # Lymphocytes # (Manual) 0.7 L PT INR POC ABG pCO2 POC ABG pO2 ABG Sodium ABG Glucose Sodium 132 L D Chloride 90.2 L Carbon Dioxide 21 L Creatinine 1.4 H Glucose 134 H Lactic Acid 3.00 H* Calcium Total Bilirubin 1.40 H Direct Bilirubin 0.4 H Total Protein 8.4 H Albumin Lipase 6 L Arterial Blood Glucose Arterial Blood Ionized Calcium 12/21/19 12/21/19 12/21/19 00:06 02:45 06:02 WBC RBC Hgb Hct MCV MCH Plt Count Lymph % (Auto) Lymph # (Auto) Seg Neutrophils % Monocytes % (Manual) Seg Neutrophils # Lymphocytes # (Manual) PT 18.5 H INR 1.52 H POC ABG pCO2 POC ABG pO2 ABG Sodium ABG Glucose Sodium Chloride Carbon Dioxide Creatinine Glucose Lactic Acid 3.70 H* 2.50 H* Calcium Total Bilirubin Direct Bilirubin Total Protein Albumin Lipase Arterial Blood Glucose Arterial Blood Ionized Calcium 12/21/19 12/21/19 12/21/19 14:27 15:18 15:18 WBC RBC Hgb Hct MCV MCH Plt Count Lymph % (Auto) Lymph # (Auto) Seg Neutrophils % Monocytes % (Manual) Seg Neutrophils # Lymphocytes # (Manual) PT INR POC ABG pCO2 POC ABG pO2 ABG Sodium ABG Glucose Sodium 133 L Chloride Carbon Dioxide 21 L Creatinine Glucose 138 H Lactic Acid 2.50 H* 2.20 H* Calcium 7.9 L D Total Bilirubin Direct Bilirubin Total Protein 5.8 L D Albumin 2.7 L Lipase Arterial Blood Glucose Arterial Blood Ionized Calcium 12/21/19 12/22/19 12/23/19 Unknown 05:00 08:43 WBC RBC 5.17 H Hgb Hct MCV 78 L 77 L MCH 26 L 26 L Plt Count 122 L Lymph % (Auto) 6.4 L Lymph # (Auto) 0.6 L Seg Neutrophils % 90.0 H Monocytes % (Manual) Seg Neutrophils # 8.4 H Lymphocytes # (Manual) PT INR POC ABG pCO2 26.0 L POC ABG pO2 119.5 H ABG Sodium 130.0 L ABG Glucose 101 H Sodium Chloride Carbon Dioxide Creatinine Glucose Lactic Acid Calcium Total Bilirubin Direct Bilirubin Total Protein Albumin Lipase Arterial Blood Glucose 101 H Arterial Blood Ionized Calcium 4.3 L 12/23/19 08:43 WBC RBC Hgb Hct MCV MCH Plt Count Lymph % (Auto) Lymph # (Auto) Seg Neutrophils % Monocytes % (Manual) Seg Neutrophils # Lymphocytes # (Manual) PT INR POC ABG pCO2 POC ABG pO2 ABG Sodium ABG Glucose Sodium Chloride Carbon Dioxide Creatinine Glucose 115 H Lactic Acid Calcium Total Bilirubin Direct Bilirubin Total Protein Albumin Lipase Arterial Blood Glucose Arterial Blood Ionized Calcium
--- NOTE | 2019-12-24 15:44 | Progress Note ---
Assessment and Plan Cultures: Blood culture 12/21/2019 pending Surgical culture 12/21/2019 Pseudomonas pansensitive, gram-negative sarah awaiting speciation A/P: 19-year-old man no past medical history admitted with rupture appendicitis. #Acute sepsis: Present with fevers and leukopenia. Secondary to ruptured appendicitis. Resolved #Ruptured appendicitis: Cultures with Pseudomonas. Closure to be performed on Friday. #Leukopenia: Likely secondary to acute illness, resolved Recs: -Continue Zosyn for now while inpatient -Continue fluconazole 400 mg every 24 hours -Agree with being able to discharge on oral antibiotics, source control is been obtained will need short course. -Plan on discharge with levofloxacin 750 mg every 24 hours, metronidazole 500 mg every 8 hours, fluconazole 400 mg every 24 hours to complete 7 days post washout. Thank you for the consult, we will continue to follow. Noé Flores MD [facility] ([facility]) M: [phone] O: [phone] F: [phone] Subjective Date of service: 12/24/19 Interval history: Afebrile with a T-max of 100 degrees normal white count. Second gram-negative sarah growing on culture, awaiting speciation Objective - Exam Narrative Exam: Physical Exam: Constitutional: Alert, cooperative. No acute distress Head, Ears, Nose: Normocephalic, atraumatic. Eyes: Conjunctivae/corneas clear. No icterus. No ptosis. Neck: Supple, no meningeal signs Oral: dentition fair, no thrush Cardiovascular: S1, S2 normal. Respiratory: Good air entry, clear to auscultation bilaterally GI: Soft, appropriate tenderness over surgical site. Drain in place, open wound dressed. Musculoskeletal: No pedal edema, no cyanosis. Skin: No rash or abscess Hem/Lymphatic: No palpable cervical or supraclavicular nodes. No lymphangitis Psych: Mood ok. Affect normal Neurological: Awake, alert, oriented. No gross abnormality - Constitutional Vitals: Vital Signs Temp Pulse Resp BP Pulse Ox 98.4 F 89 18 133/84 96 12/24/19 12:38 12/24/19 12:38 12/24/19 12:38 12/24/19 12:38 12/24/19 12:38 Temperature -Last 24 Hours Temperature 98.4 F Temperature 98.8 F Temperature 99.5 F Temperature 100.0 F Temperature 99.2 F Temperature 99.0 F - Labs CBC & Chem 7: 12/23/19 08:43 12/23/19 08:43
--- NOTE | 2019-12-24 17:02 | Progress Note ---
Assessment and Plan Sepsis secondary to perforated appendicitis s/p Open appendectomy feculant peritonitis, air in some mesenteric vein YAHIR SECONDARY TO Vasomotor nephropathy Leukopenia Hyperblirubenmia Hyponatremia Plan Continue supportive care Wound closer to be done with by surgery Pain control Give additional bolus of fluids due to [place] Check renal function in am ID consult appreciated Continue emperic antibiotics and monitor AM labs DVT/GI PROPHY Continue IV antibiotics Abdominal wall closure on 12/27/2019 Subjective Date of service: 12/24/19 Principal diagnosis: Perforated appendicitis with sepsis and peritonitis Interval history: 19-year-old -Cypriot male with no significant past medical history who presents to the emergency room today complaining of abdominal pain with associated nausea and vomiting. Patient states he was celebrating his 19st birthday and went on the binge drinking of alcohol. He thereafter started having nausea and vomiting with the associated abdominal pain. Abdominal pain is said to be epigastric and later became generalized.. There was a plan for patient to be discharged from the emergency room when he suddenly became hypotensive, tachycardic, tachypneic and diaphoretic I was further reevaluated by the ER physician for CT of the abdomen and pelvis. CT of the abdomen and pelvis however reveals : Ruptured viscus in the right lower quadrant, likely ruptured appendicitis. In addition to small amount of mesenteric gas and trace pneumoperitoneum, there is ascites. There is suggestion of mild peritoneal enhancement which is concerning for peritonitis. Small bowel inflammation is likely reactive related to the free fluid/peritonitis. General surgeon on-call was consulted by the ER physician for evaluation. Patient has been admitted for ruptured appendicitis and or peritonitis. He has been started on IV fluid and empiric IV antibiotics 12/21: Continue hydration and NPO. Pain management per surgeon, wound care consulted, rehab when wound closure achieved.Lekupenia resolved. Monitor fever curve ID input noted continue Zosyn fluconazole added. 12/23/2019 Continue IV antibiotics 12/24/2019 Patient had appendectomy S/p appendectomy doing well Open wound to be closed on 12/27/2019 Continue IV antibiotics Objective - Constitutional Vitals: Vital Signs - 12hr 12/24/19 12/24/19 07:32 12:38 Temperature 98.8 F 98.4 F Pulse Rate 89 89 Respiratory 17 18 Rate Blood Pressure 118/79 Blood Pressure 133/84 [Right] O2 Sat by Pulse 96 96 Oximetry General appearance: Present: no acute distress, well-nourished - EENT Eyes: PERRL, EOM intact ENT: hearing intact, clear oral mucosa Ears: bilateral: normal - Neck Neck: supple, normal ROM - Respiratory Respiratory effort: normal Respiratory: bilateral: CTA - Breasts Breasts: normal - Cardiovascular Rhythm: regular Heart Sounds: Present: S1 & S2. Absent: gallop, rub Extremities: pulses intact, No edema, normal color, Full ROM - Gastrointestinal General gastrointestinal: Present: soft, tender, non-distended, normal bowel sounds Localized gastrointestinal: tender: diffuse - Genitourinary Male genitourinary: normal - Integumentary Integumentary: clear, warm, dry - Musculoskeletal Musculoskeletal: 1, strength equal bilaterally - Neurologic Neurologic: moves all extremities - Psychiatric Psychiatric: memory intact, appropriate mood/affect, intact judgment & insight - Allied health notes Allied health notes reviewed: nursing, case management - Labs CBC & Chem 7: 12/23/19 08:43 12/23/19 08:43 HEART Score - HEART Score Troponin: Troponin T < 0.010 ng/mL (0.00-0.029) 12/20/19 23:09
--- NOTE | 2019-12-24 18:03 | Progress Note ---
Assessment and Plan hemodyn stable, 2 blood cultures now positive for E Coli, will plan delayed closure of skin on abdomen on Friday, continue KERWIN drain and iv antibiotics, I spoke with patient and his Mom in [place] by phone and updated her on all findings. Possible discharge on Friday on oral antibiotics. Continue KERWIN drain for now, drainage clear. Subjective Date of service: 12/24/19 Patient Reports: Positive: no new complaints Objective Vital Signs - 12hr 12/24/19 12/24/19 12/24/19 07:32 12:38 17:00 Temperature 98.8 F 98.4 F 99 F Pulse Rate 89 89 89 Respiratory 17 18 16 Rate Blood Pressure 118/79 Blood Pressure 133/84 117/80 [Right] O2 Sat by Pulse 96 96 96 Oximetry - General physical appearance no distress - Eyes PERRL, normal occular movement - ENT normal pinna, normal nares, normal mucosa, no hearing loss, no congestion - Neck no masses, no bruits, trachea midline, no lymphadectomy, no venous distension - Respiratory normal expansion, normal respiratory effort, clear to percussion, clear to auscultation - Abdomen soft, bowel sounds normal, other Hernia: incisional (dressing intact, wound clean, granulating in) - Psychiatric oriented to time, oriented to person, oriented to place, speech is normal, memory intact - Labs 12/23/19 08:43 12/23/19 08:43
[2019-12-25] MEDS: ACETAMINOPHEN 325 MG TAB PO PRN (00:59)
[2019-12-25] MEDS: PIPERACIL/TAZOBACTA 4.5/NS 100 4.5 GM/100 ML VIAL IV SCH ×3 (05:44→21:39)
[2019-12-25] MEDS: D5W/0.45% NACL 1,000 ML IV SCH ×2 (05:44→22:00)
[2019-12-25] MEDS: FLUCONAZOLE 400 MG 200 ML IV SCH (09:54)
--- NOTE | 2019-12-25 17:53 | Progress Note ---
Assessment and Plan Sepsis secondary to perforated appendicitis s/p Open appendectomy feculant peritonitis, air in some mesenteric vein YAHIR SECONDARY TO Vasomotor nephropathy Leukopenia Hyperblirubenmia Hyponatremia Plan Continue supportive care Wound closer to be done on 12/27/2019 Pain control Give additional bolus of fluids due to tachy[place] Check renal function in am ID consult appreciated Continue emperic antibiotics and monitor AM labs DVT/GI PROPHY Continue IV antibiotics Abdominal wall closure on 12/27/2019 Subjective Date of service: 12/25/19 Principal diagnosis: Perforated appendicitis and peritonitis and sepsis Interval history: 19-year-old -Dominican male with no significant past medical history who presents to the emergency room today complaining of abdominal pain with associated nausea and vomiting. Patient states he was celebrating his 19st birthday and went on the binge drinking of alcohol. He thereafter started having nausea and vomiting with the associated abdominal pain. Abdominal pain is said to be epigastric and later became generalized.. There was a plan for patient to be discharged from the emergency room when he suddenly became hypotensive, tachycardic, tachypneic and diaphoretic I was further reevaluated by the ER physician for CT of the abdomen and pelvis. CT of the abdomen and pelvis however reveals : Ruptured viscus in the right lower quadrant, likely ruptured appendicitis. In addition to small amount of mesenteric gas and trace pneumoperitoneum, there is ascites. There is suggestion of mild peritoneal enhancement which is concerning for peritonitis. Small bowel inflammation is likely reactive related to the free fluid/peritonitis. General surgeon on-call was consulted by the ER physician for evaluation. Patient has been admitted for ruptured appendicitis and or peritonitis. He has been started on IV fluid and empiric IV antibiotics 12/21: Continue hydration and NPO. Pain management per surgeon, wound care consulted, rehab when wound closure achieved.Lekupenia resolved. Monitor fever curve ID input noted continue Zosyn fluconazole added. 12/23/2019 Continue IV antibiotics 12/24/2019 Patient had appendectomy S/p appendectomy doing well Open wound to be closed on 12/27/2019 Continue IV antibiotics Objective - Constitutional Vitals: Vital Signs - 12hr 12/25/19 12/25/19 12/25/19 07:57 11:45 16:23 Temperature 98.4 F 98.7 F 99.2 F Pulse Rate 84 82 84 Respiratory 18 18 18 Rate Blood Pressure 124/82 125/79 123/76 O2 Sat by Pulse 96 96 96 Oximetry General appearance: Present: no acute distress, well-nourished - EENT Eyes: PERRL, EOM intact ENT: hearing intact, clear oral mucosa Ears: bilateral: normal - Neck Neck: supple, normal ROM - Respiratory Respiratory effort: normal Respiratory: bilateral: CTA - Breasts Breasts: normal - Cardiovascular Heart rate: 78 Rhythm: regular Heart Sounds: Present: S1 & S2. Absent: gallop, rub Extremities: pulses intact, No edema, normal color, Full ROM - Gastrointestinal General gastrointestinal: Present: soft, tender, non-distended, normal bowel sounds Localized gastrointestinal: tender: diffuse - Genitourinary Male genitourinary: normal - Integumentary Integumentary: clear, warm, dry - Musculoskeletal Musculoskeletal: 1, strength equal bilaterally - Neurologic Neurologic: moves all extremities - Psychiatric Psychiatric: memory intact, appropriate mood/affect, intact judgment & insight - Allied health notes Allied health notes reviewed: nursing, case management - Labs CBC & Chem 7: 12/23/19 08:43 12/23/19 08:43 HEART Score - HEART Score Troponin: Troponin T < 0.010 ng/mL (0.00-0.029) 12/20/19 23:09
--- NOTE | 2019-12-25 18:17 | Event Note ---
Date: 12/25/19 Plan is the same,delayed closure of skin /abdomen Friday,NPO friday night after midnight, continue iv antibiotics for 2 positive blood cultures at least till Friday, then change to PO antibiotics and d/c drain, then patient can probably be discharged Friday am, and go back to [place], He will need follow up with surgeon in [place].
--- NOTE | 2019-12-25 20:30 | Event Note ---
Date: 12/25/19 Blood cultures reviewed [place] pansensitive. peritoneal cultures pseudomonas and ecoli, avila sensivtive. Should OK to switch to oral antibiotics and diflucan safely.
--- NOTE | 2019-12-25 21:23 | Progress Note ---
Assessment and Plan Patient alert, awake. No complaint of chest pain, shortness of breath or cough. O2 saturation on room air 97%. Recommend contine incentive spirometry. - Patient Problems (1) Acute perforated appendicitis Current Visit: Yes Status: Acute Plan to address problem: Patient undergone exploratory laporotomy Appendectomy and repair of perforated Appendex and peritoneal wash out. (2) Pneumoperitoneum Current Visit: Yes Status: Acute Plan to address problem: From perforated viscous. Perforated viscus repaired. (3) Sepsis Current Visit: Yes Status: Acute Plan to address problem: Patient is on zosyn. (4) Peritonitis Current Visit: Yes Status: Acute Plan to address problem: Peritoneal wash out. patient is on zosyn. Subjective Date of service: 12/25/19 Interval history: Patient alert, awake. No complaint of chest pain, shortness of breath or cough. O2 saturation on room air 97%. Recommend contine incentive spirometry. Objective Vital Signs - 12hr 12/25/19 12/25/19 12/25/19 11:45 16:23 19:37 Temperature 98.7 F 99.2 F 98.8 F Pulse Rate 82 84 81 Respiratory 18 18 18 Rate Blood Pressure 125/79 123/76 126/80 O2 Sat by Pulse 96 96 97 Oximetry Constitutional: no acute distress, alert Eyes: non-icteric ENT: oropharynx moist Neck: supple, no JVD Effort: normal Ascultation: Bilateral: diminished breath sounds Cardiovascular: regular rate and rhythm Gastrointestinal: hypoactive bowel sounds, tender Integumentary: normal Extremities: no cyanosis, no edema Neurologic: normal mental status, non-focal exam, pupils equal and round, CN II- XII normal Psychiatric: mood appropriate CBC and BMP: 12/23/19 08:43 12/23/19 08:43 ABG, PT/INR, D-dimer: ABG ABG pH 7.444 (7.320-7.450) 12/21/19 Unknown POC ABG pCO2 26.0 mmHg (32.0-48.0) L 12/21/19 Unknown POC ABG pO2 119.5 mmHg (83-108) H 12/21/19 Unknown POC ABG HCO3 17.5 12/21/19 Unknown PT/INR, D-dimer PT 18.5 Sec. (12.2-14.9) H 12/21/19 00:06 INR 1.52 (0.87-1.13) H 12/21/19 00:06 Abnormal lab findings: Abnormal Labs 12/20/19 12/20/19 12/21/19 19:50 19:50 00:00 WBC 2.9 L RBC 7.05 H Hgb 18.2 H Hct 55.1 H D MCV 78 L MCH 26 L Plt Count Lymph % (Auto) Lymph # (Auto) Seg Neutrophils % Monocytes % (Manual) 8.0 H Seg Neutrophils # Lymphocytes # (Manual) 0.7 L PT INR POC ABG pCO2 POC ABG pO2 ABG Sodium ABG Glucose Sodium 132 L D Chloride 90.2 L Carbon Dioxide 21 L Creatinine 1.4 H Glucose 134 H Lactic Acid 3.00 H* Calcium Total Bilirubin 1.40 H Direct Bilirubin 0.4 H Total Protein 8.4 H Albumin Lipase 6 L Arterial Blood Glucose Arterial Blood Ionized Calcium 12/21/19 12/21/19 12/21/19 00:06 02:45 06:02 WBC RBC Hgb Hct MCV MCH Plt Count Lymph % (Auto) Lymph # (Auto) Seg Neutrophils % Monocytes % (Manual) Seg Neutrophils # Lymphocytes # (Manual) PT 18.5 H INR 1.52 H POC ABG pCO2 POC ABG pO2 ABG Sodium ABG Glucose Sodium Chloride Carbon Dioxide Creatinine Glucose Lactic Acid 3.70 H* 2.50 H* Calcium Total Bilirubin Direct Bilirubin Total Protein Albumin Lipase Arterial Blood Glucose Arterial Blood Ionized Calcium 12/21/19 12/21/19 12/21/19 14:27 15:18 15:18 WBC RBC Hgb Hct MCV MCH Plt Count Lymph % (Auto) Lymph # (Auto) Seg Neutrophils % Monocytes % (Manual) Seg Neutrophils # Lymphocytes # (Manual) PT INR POC ABG pCO2 POC ABG pO2 ABG Sodium ABG Glucose Sodium 133 L Chloride Carbon Dioxide 21 L Creatinine Glucose 138 H Lactic Acid 2.50 H* 2.20 H* Calcium 7.9 L D Total Bilirubin Direct Bilirubin Total Protein 5.8 L D Albumin 2.7 L Lipase Arterial Blood Glucose Arterial Blood Ionized Calcium 12/21/19 12/22/19 12/23/19 Unknown 05:00 08:43 WBC RBC 5.17 H Hgb Hct MCV 78 L 77 L MCH 26 L 26 L Plt Count 122 L Lymph % (Auto) 6.4 L Lymph # (Auto) 0.6 L Seg Neutrophils % 90.0 H Monocytes % (Manual) Seg Neutrophils # 8.4 H Lymphocytes # (Manual) PT INR POC ABG pCO2 26.0 L POC ABG pO2 119.5 H ABG Sodium 130.0 L ABG Glucose 101 H Sodium Chloride Carbon Dioxide Creatinine Glucose Lactic Acid Calcium Total Bilirubin Direct Bilirubin Total Protein Albumin Lipase Arterial Blood Glucose 101 H Arterial Blood Ionized Calcium 4.3 L 12/23/19 08:43 WBC RBC Hgb Hct MCV MCH Plt Count Lymph % (Auto) Lymph # (Auto) Seg Neutrophils % Monocytes % (Manual) Seg Neutrophils # Lymphocytes # (Manual) PT INR POC ABG pCO2 POC ABG pO2 ABG Sodium ABG Glucose Sodium Chloride Carbon Dioxide Creatinine Glucose 115 H Lactic Acid Calcium Total Bilirubin Direct Bilirubin Total Protein Albumin Lipase Arterial Blood Glucose Arterial Blood Ionized Calcium
[2019-12-25] MEDS: MORPHINE 2 MG/1 ML INJ IV PRN (21:57)
[2019-12-25] MEDS: traZODone 50 MG TAB PO PRN (21:57)
[2019-12-26] MEDS: oxyCODONE /ACETAMINOPHEN 5-325MG TAB PO PRN ×3 (04:17→21:19)
[2019-12-26] MEDS: PIPERACIL/TAZOBACTA 4.5/NS 100 4.5 GM/100 ML VIAL IV SCH (07:15)
[2019-12-26] MEDS: FLUCONAZOLE 400 MG 200 ML IV SCH (09:34)
--- NOTE | 2019-12-26 09:36 | Progress Note ---
Assessment and Plan Need to d/c iv antibiotics today and change to PO CIPRO, Flagyll, and Diflucan x 5 days. I will close skin incision and remove drain tommorrow , and then patient can be discharged home, he will need Subjective Date of service: 12/26/19 Patient Reports: Positive: no new complaints Objective Vital Signs - 12hr 12/25/19 12/25/19 12/26/19 21:57 22:27 04:17 Temperature Pulse Rate Respiratory 18 18 18 Rate Blood Pressure O2 Sat by Pulse Oximetry 12/26/19 12/26/19 12/26/19 05:17 05:58 07:32 Temperature 98.9 F 98.6 F Pulse Rate 85 89 Respiratory 18 18 18 Rate Blood Pressure 132/76 123/79 O2 Sat by Pulse 95 97 Oximetry - General physical appearance no distress - Eyes PERRL, normal occular movement - ENT normal pinna, normal nares, normal mucosa, no hearing loss, no congestion - Neck no masses, no bruits, trachea midline, no lymphadectomy, no venous distension - Respiratory normal expansion, normal respiratory effort, clear to percussion, clear to auscultation - Abdomen soft, tender, bowel sounds normal, other (wound ok) - Psychiatric oriented to time, oriented to person, oriented to place, speech is normal, memory intact - Labs 12/23/19 08:43 12/23/19 08:43
[2019-12-26] MEDS: levoFLOXacin 500 MG TAB PO SCH (12:07)
[2019-12-26] MEDS: metroNIDAZOLE 250 MG TAB PO SCH ×2 (13:42→21:18)
--- NOTE | 2019-12-26 20:46 | Progress Note ---
Assessment and Plan Patient alert, awake. No complaint of chest pain, shortness of breath or cough. O2 saturation on room air 98%. Recommend contine incentive spirometry. Patient scheduled for abdominal wound closure tomorrow. - Patient Problems (1) Acute perforated appendicitis Current Visit: Yes Status: Acute Plan to address problem: Patient undergone exploratory laporotomy Appendectomy and repair of perforated Appendex and peritoneal wash out. (2) Pneumoperitoneum Current Visit: Yes Status: Acute Plan to address problem: From perforated viscous. Perforated viscus repaired. (3) Sepsis Current Visit: Yes Status: Acute Plan to address problem: Patient is on zosyn. (4) Peritonitis Current Visit: Yes Status: Acute Plan to address problem: Peritoneal wash out. patient is on zosyn. Subjective Date of service: 12/26/19 Interval history: Patient alert, awake. No complaint of chest pain, shortness of breath or cough. O2 saturation on room air 98%. Recommend contine incentive spirometry. Patient scheduled for abdominal wound closure tomorrow. Objective Vital Signs - 12hr 12/26/19 12/26/19 12/26/19 12:16 17:16 18:56 Temperature 98.6 F 98.1 F 98.4 F Pulse Rate 81 84 89 Respiratory 18 18 18 Rate Blood Pressure 121/76 126/71 113/78 O2 Sat by Pulse 97 98 98 Oximetry Constitutional: no acute distress, alert Eyes: non-icteric ENT: oropharynx moist Neck: supple, no JVD Effort: normal Ascultation: Bilateral: diminished breath sounds Cardiovascular: regular rate and rhythm Gastrointestinal: hypoactive bowel sounds, tender Integumentary: normal Extremities: no cyanosis, no edema Neurologic: normal mental status, non-focal exam, pupils equal and round, CN II- XII normal Psychiatric: mood appropriate CBC and BMP: 12/23/19 08:43 12/23/19 08:43 ABG, PT/INR, D-dimer: ABG ABG pH 7.444 (7.320-7.450) 12/21/19 Unknown POC ABG pCO2 26.0 mmHg (32.0-48.0) L 12/21/19 Unknown POC ABG pO2 119.5 mmHg (83-108) H 12/21/19 Unknown POC ABG HCO3 17.5 12/21/19 Unknown PT/INR, D-dimer PT 18.5 Sec. (12.2-14.9) H 12/21/19 00:06 INR 1.52 (0.87-1.13) H 12/21/19 00:06 Abnormal lab findings: Abnormal Labs 12/20/19 12/20/19 12/21/19 19:50 19:50 00:00 WBC 2.9 L RBC 7.05 H Hgb 18.2 H Hct 55.1 H D MCV 78 L MCH 26 L Plt Count Lymph % (Auto) Lymph # (Auto) Seg Neutrophils % Monocytes % (Manual) 8.0 H Seg Neutrophils # Lymphocytes # (Manual) 0.7 L PT INR POC ABG pCO2 POC ABG pO2 ABG Sodium ABG Glucose Sodium 132 L D Chloride 90.2 L Carbon Dioxide 21 L Creatinine 1.4 H Glucose 134 H Lactic Acid 3.00 H* Calcium Total Bilirubin 1.40 H Direct Bilirubin 0.4 H Total Protein 8.4 H Albumin Lipase 6 L Arterial Blood Glucose Arterial Blood Ionized Calcium 12/21/19 12/21/19 12/21/19 00:06 02:45 06:02 WBC RBC Hgb Hct MCV MCH Plt Count Lymph % (Auto) Lymph # (Auto) Seg Neutrophils % Monocytes % (Manual) Seg Neutrophils # Lymphocytes # (Manual) PT 18.5 H INR 1.52 H POC ABG pCO2 POC ABG pO2 ABG Sodium ABG Glucose Sodium Chloride Carbon Dioxide Creatinine Glucose Lactic Acid 3.70 H* 2.50 H* Calcium Total Bilirubin Direct Bilirubin Total Protein Albumin Lipase Arterial Blood Glucose Arterial Blood Ionized Calcium 12/21/19 12/21/19 12/21/19 14:27 15:18 15:18 WBC RBC Hgb Hct MCV MCH Plt Count Lymph % (Auto) Lymph # (Auto) Seg Neutrophils % Monocytes % (Manual) Seg Neutrophils # Lymphocytes # (Manual) PT INR POC ABG pCO2 POC ABG pO2 ABG Sodium ABG Glucose Sodium 133 L Chloride Carbon Dioxide 21 L Creatinine Glucose 138 H Lactic Acid 2.50 H* 2.20 H* Calcium 7.9 L D Total Bilirubin Direct Bilirubin Total Protein 5.8 L D Albumin 2.7 L Lipase Arterial Blood Glucose Arterial Blood Ionized Calcium 12/21/19 12/22/19 12/23/19 Unknown 05:00 08:43 WBC RBC 5.17 H Hgb Hct MCV 78 L 77 L MCH 26 L 26 L Plt Count 122 L Lymph % (Auto) 6.4 L Lymph # (Auto) 0.6 L Seg Neutrophils % 90.0 H Monocytes % (Manual) Seg Neutrophils # 8.4 H Lymphocytes # (Manual) PT INR POC ABG pCO2 26.0 L POC ABG pO2 119.5 H ABG Sodium 130.0 L ABG Glucose 101 H Sodium Chloride Carbon Dioxide Creatinine Glucose Lactic Acid Calcium Total Bilirubin Direct Bilirubin Total Protein Albumin Lipase Arterial Blood Glucose 101 H Arterial Blood Ionized Calcium 4.3 L 12/23/19 08:43 WBC RBC Hgb Hct MCV MCH Plt Count Lymph % (Auto) Lymph # (Auto) Seg Neutrophils % Monocytes % (Manual) Seg Neutrophils # Lymphocytes # (Manual) PT INR POC ABG pCO2 POC ABG pO2 ABG Sodium ABG Glucose Sodium Chloride Carbon Dioxide Creatinine Glucose 115 H Lactic Acid Calcium Total Bilirubin Direct Bilirubin Total Protein Albumin Lipase Arterial Blood Glucose Arterial Blood Ionized Calcium
[2019-12-26] MEDS: traZODone 50 MG TAB PO PRN (21:18)
[2019-12-27] MEDS: metroNIDAZOLE 250 MG TAB PO SCH ×3 (06:56→15:15)
[2019-12-27] MEDS ORDERED: FLUCONAZOLE 200 MG TAB PO SCH (08:00)
--- NOTE | 2019-12-27 08:18 | XRay Report ---
CHEST 2 VIEWS INDICATION: Follow up on pneumoperitoneum. COMPARISON: 12/20/2019 FINDINGS: Support devices: None. Heart: Within normal limits. Lungs/pleura: No acute air space or interstitial disease. Small left pleural effusion has developed. Additional findings: None. IMPRESSION: Small left pleural effusion has developed. Signer Name: Osvaldo Gomez Jr, MD Signed: 12/27/2019 8:14 AM Workstation Name: [id number]
--- NOTE | 2019-12-27 08:42 | Anesthesia Day of Surgery ---
Anesthesia Day of Surgery - Day of Surgery Patient Examined: Yes Patient H&P Reviewed: Yes Patient is NPO: Yes
--- NOTE | 2019-12-27 08:43 | Anesthesia Consultation ---
Anesthesia Consult and Med Hx Date of service: 12/27/19 - Airway Anesthetic Teeth Evaluation: Good ROM Head & Neck: Adequate Mental/Hyoid Distance: Adequate Mallampati Class: Class I Intubation Access Assessment: Good - Pre-Operative Health Status ASA Pre-Surgery Classification: ASA2 Proposed Anesthetic Plan: General - Pulmonary Hx Asthma: No COPD: No Hx Pneumonia: No - Endocrine Hx End Stage Renal Disease: No - Other Systems Hx Alcohol Use: Yes - Additional Comments Anesthesia Medical History Comments: Was here [id number]
[2019-12-27] MEDS ORDERED: LIDOCAINE MPF (2%) 20 MG/1 ML VIAL 5 ML ONE (08:46)
[2019-12-27] MEDS ORDERED: propofoL 200 MG/20 ML VIAL IV ONE (08:46)
[2019-12-27] MEDS ORDERED: HYDROmorphone 1 MG/1 ML INJ ONE (08:46)
[2019-12-27] MEDS ORDERED: LACTATED RINGERS 1,000 ML ONE (08:53)
[2019-12-27] MEDS: LACTATED RINGERS 1,000 ML IV SCH ×2 (08:55→12:15)
[2019-12-27] MEDS: levoFLOXacin 500 MG TAB PO SCH (09:05)
[2019-12-27] MEDS ORDERED: fentaNYL 100 MCG/2 ML INJ IV NR (09:10)
[2019-12-27] MEDS ORDERED: MIDAZOLAM 2 MG/2 ML INJ IV NR (09:11)
[2019-12-27] MEDS ORDERED: KETOROLAC 30 MG/1 ML INJ ONE (10:25)
[2019-12-27] MEDS ORDERED: ONDANSETRON 4 MG/2 ML INJ ONE (10:25)
[2019-12-27] MEDS ORDERED: SODIUM CHLORIDE 0.9% IRR 1,500 ML BOTTLE IR ONE (10:32)
--- NOTE | 2019-12-27 10:32 | Post Operative Note ---
Pre-op diagnosis: perforated appendicitis Post-op diagnosis: same Findings: Wound clean good granulation tissue Procedure: delayed closure of skin for abdominal wound Anesthesia: MAC Surgeon: FREDDY WRIGHT Estimated blood loss: none Pathology: none Condition: stable Disposition: floor
--- NOTE | 2019-12-27 10:35 | Event Note ---
Date: 12/27/19 Once patient tolerating diet, OK to discharge home on oral antibiotics, limited pain meds. Pt will return to [place], but if he stays in town I will be happy to see him in my office next Friday for staple removal. Otherwise , he will need to follow up with Primary care or Gen surgeon in [facility] for staple removal, his Mom is a nurse.
[2019-12-27 11:53] VITALS: BP 123/73
--- NOTE | 2019-12-27 15:03 | Progress Note ---
Assessment and Plan Cultures: Blood culture 12/21/2019 Prevotella Surgical culture 12/21/2019 Pseudomonas pansensitive, E. coli A/P: 19-year-old man no past medical history admitted with rupture appendicitis. #Acute sepsis: Present with fevers and leukopenia. Secondary to ruptured appendicitis. Resolved #Prevotella bacteremia: Secondary to ruptured appendicitis. #Ruptured appendicitis: Cultures with Pseudomonas and E. coli. Closure to be performed on Friday. #Leukopenia: Likely secondary to acute illness, resolved Recs: -Continue Zosyn for now while inpatient -Continue fluconazole 400 mg every 24 hours -Agree with being able to discharge on oral antibiotics, source control is been obtained will need short course. -Plan on discharge with levofloxacin 750 mg every 24 hours, fluconazole 400 mg every 24 hours to complete 7 days post washout, 12/28/2019 -Discharge with metronidazole as well 500 mg every 8 hours till 01/04/2020 for the bacteremia Okay for discharge from infectious disease perspective. Thank you for the consult, we will continue to follow. Noé Flores MD [facility] M: [phone] O: [phone] F: [phone] Subjective Date of service: 12/27/19 Interval history: Afebrile with a T-max of 100.2, normal white count. Peritoneal cultures with Pseudomonas and E. coli, blood cultures with Prevotella oralis. Return to the OR today for closure. Imaging personally reviewed: Chest x-ray: Small left pleural effusion. Objective - Exam Narrative Exam: Physical Exam: Constitutional: Alert, cooperative. No acute distress Head, Ears, Nose: Normocephalic, atraumatic. Eyes: Conjunctivae/corneas clear. No icterus. No ptosis. Neck: Supple, no meningeal signs Oral: dentition fair, no thrush Cardiovascular: S1, S2 normal. Respiratory: Good air entry, clear to auscultation bilaterally GI: Soft, appropriate tenderness over surgical site. Drain in place, open wound dressed. Musculoskeletal: No pedal edema, no cyanosis. Skin: No rash or abscess Hem/Lymphatic: No palpable cervical or supraclavicular nodes. No lymphangitis Psych: Mood ok. Affect normal Neurological: Awake, alert, oriented. No gross abnormality - Constitutional Vitals: Vital Signs Temp Pulse Resp BP Pulse Ox 97.7 F 81 16 121/75 97 12/27/19 11:00 12/27/19 11:15 12/27/19 11:15 12/27/19 11:15 12/27/19 11:15 Temperature -Last 24 Hours Temperature 97.7 F Temperature 99.4 F Temperature 100.2 F Temperature 100.2 F Temperature 98.4 F Temperature 98.9 F Temperature 98.4 F Temperature 98.1 F - Labs CBC & Chem 7: 12/23/19 08:43 12/23/19 08:43
--- NOTE | 2019-12-27 15:24 | Progress Note ---
Assessment and Plan Sepsis secondary to perforated appendicitis s/p Open appendectomy feculant peritonitis, air in some mesenteric vein YAHIR SECONDARY TO Vasomotor nephropathy Leukopenia Hyperblirubenmia Hyponatremia Plan Continue supportive care Wound closer to be done on 12/27/2019 Pain control Give additional bolus of fluids due to tachycadia Check renal function in am ID consult appreciated Continue emperic antibiotics and monitor AM labs Patient able to eat DVT/GI PROPHY Continue IV antibiotics Abdominal wall closure on 12/27/2019 Subjective Date of service: 12/26/19 Principal diagnosis: Perforated appendicitis and peritonitis and sepsis Interval history: 19-year-old -[place] male with no significant past medical history who p resents to the emergency room today complaining of abdominal pain with associated nausea and vomiting. Patient states he was celebrating his 19st birthday and went on the binge drinking of alcohol. He thereafter started having nausea and vomiting with the associated abdominal pain. Abdominal pain is said to be epigastric and later became generalized.. There was a plan for patient to be discharged from the emergency room when he suddenly became hypotensive, tachycardic, tachypneic and diaphoretic I was further reevaluated by the ER physician for CT of the abdomen and pelvis. CT of the abdomen and pelvis however reveals : Ruptured viscus in the right lower quadrant, likely ruptured appendicitis. In addition to small amount of mesenteric gas and trace pneumoperitoneum, there is ascites. There is suggestion of mild peritoneal enhancement which is concerning for peritonitis. Small bowel inflammation is likely reactive related to the free fluid/peritonitis. General surgeon on-call was consulted by the ER physician for evaluation. Patient has been admitted for ruptured appendicitis and or peritonitis. He has been started on IV fluid and empiric IV antibiotics 12/21: Continue hydration and NPO. Pain management per surgeon, wound care consulted, rehab when wound closure achieved.Lekupenia resolved. Monitor fever curve ID input noted continue Zosyn fluconazole added. 12/23/2019 Continue IV antibiotics 12/24/2019 Patient had appendectomy S/p appendectomy doing well Open wound to be closed on 12/27/2019 Continue IV antibiotics 12/26/2019 For abdominal wall closure tomorrow Otherwise patient doing well Objective - Constitutional Vitals: Vital Signs - 12hr 12/27/19 12/27/19 12/27/19 05:37 07:00 08:30 Temperature 98.9 F 98.4 F 100.2 F H Pulse Rate 91 H 94 H 100 H Respiratory 18 20 24 Rate Blood Pressure 125/81 135/82 Blood Pressure 143/84 [Right] O2 Sat by Pulse 97 96 98 Oximetry 12/27/19 12/27/19 12/27/19 08:50 09:35 10:38 Temperature 100.2 F H 99.4 F Pulse Rate 100 H 89 Respiratory 24 20 16 Rate Blood Pressure 135/82 124/80 Blood Pressure [Right] O2 Sat by Pulse 98 94 Oximetry 12/27/19 12/27/19 12/27/19 10:45 10:50 10:55 Temperature Pulse Rate 88 93 H 85 Respiratory 14 13 14 Rate Blood Pressure 126/77 129/78 122/73 Blood Pressure [Right] O2 Sat by Pulse 98 98 98 Oximetry 12/27/19 12/27/19 11:00 11:15 Temperature 97.7 F Pulse Rate 77 81 Respiratory 16 16 Rate Blood Pressure 129/79 121/75 Blood Pressure 123/73 [Right] O2 Sat by Pulse 98 97 Oximetry General appearance: Present: no acute distress, well-nourished - EENT Eyes: PERRL, EOM intact ENT: hearing intact, clear oral mucosa Ears: bilateral: normal - Neck Neck: supple, normal ROM - Respiratory Respiratory effort: normal Respiratory: bilateral: CTA - Breasts Breasts: normal - Cardiovascular Rhythm: regular Heart Sounds: Present: S1 & S2. Absent: gallop, rub Extremities: pulses intact, No edema, normal color, Full ROM - Gastrointestinal General gastrointestinal: Present: soft, non-tender, non-distended, normal bowel sounds - Genitourinary Male genitourinary: normal - Integumentary Integumentary: clear, warm, dry - Musculoskeletal Musculoskeletal: 1, strength equal bilaterally - Neurologic Neurologic: moves all extremities - Psychiatric Psychiatric: memory intact, appropriate mood/affect, intact judgment & insight - Allied health notes Allied health notes reviewed: nursing, case management - Labs CBC & Chem 7: 12/23/19 08:43 12/23/19 08:43 HEART Score - HEART Score Troponin: Troponin T < 0.010 ng/mL (0.00-0.029) 12/20/19 23:09
--- NOTE | 2019-12-27 15:25 | Discharge Summary ---
Providers - Providers Date of Admission: 12/21/19 00:09 Date of discharge: 12/27/19 Attending physician: LIBERTAD MURRAY 12/20/19 23:48 Consult to Physician [CONS] Stat Comment: To consult on patient maximiliano admission Consulting Provider: FREDDY WRIGHT Physician Instructions: NPO; Hospitalist admission; resuscitation Reason For Exam: Perforated appendicitis; mesenteric gas 12/21/19 00:18 Consult to Dietitian/Nutrition [CONS] Routine Physician Instructions: Reason For Exam: Reason for Consult: Diet education 12/21/19 01:54 Consult to Physician [CONS] Routine Comment: Dr. Hsieh spoke with Dr. Magaña @ [phone] Consulting Provider: WALI FERNANDEZ Physician Instructions: Reason For Exam: RUPTURED APPENDIX WITH PNEUMOPERITONEUM 12/21/19 14:55 Consult to Physician [CONS] Routine Comment: Consulting Provider: CHLOE ANGEL Physician Instructions: Reason For Exam: SEPSIS 12/22/19 10:28 Consult to Wound/ET Nurse [CONS] Routine Reason For Exam: wet to dry dressing changes 1/2 strength Dakins Primary care physician: ICE HANDLER Hospitalization Condition: Stable Hospital course: Subjective Date of service: 12/27/19 Principal diagnosis: Perforated appendicitis and peritonitis and sepsis Interval history: 19-year-old -[place] male with no significant past medical history who presents to the emergency room today complaining of abdominal pain with associated nausea and vomiting. Patient states he was celebrating his 19st birthday and went on the binge drinking of alcohol. He thereafter started having nausea and vomiting with the associated abdominal pain. Abdominal pain is said to be epigastric and later became generalized.. There was a plan for patient to be discharged from the emergency room when he suddenly became hypotensive, tachycardic, tachypneic and diaphoretic I was further reevaluated by the ER physician for CT of the abdomen and pelvis. CT of the abdomen and pelvis however reveals : Ruptured viscus in the right lower quadrant, likely ruptured appendicitis. In addition to small amount of mesenteric gas and trace pneumoperitoneum, there is ascites. There is suggestion of mild peritoneal enhancement which is concerning for peritonitis. Small bowel inflammation is likely reactive related to the free fluid/peritonitis. General surgeon on-call was consulted by the ER physician for evaluation. Patient has been admitted for ruptured appendicitis and or peritonitis. He has been started on IV fluid and empiric IV antibiotics 12/21: Continue hydration and NPO. Pain management per surgeon, wound care consulted, rehab when wound closure achieved.Lekupenia resolved. Monitor fever curve ID input noted continue Zosyn fluconazole added. 12/23/2019 Continue IV antibiotics 12/24/2019 Patient had appendectomy S/p appendectomy doing well Open wound to be closed on 12/27/2019 Continue IV antibiotics 12/26/2019 For abdominal wall closure tomorrow Otherwise patient doing well Sepsis secondary to perforated appendicitis s/p Open appendectomy feculant peritonitis, air in some mesenteric vein YAHIR SECONDARY TO Vasomotor nephropathy Leukopenia Hyperblirubenmia Hyponatremia Plan Continue supportive care Wound closer to be done on 12/27/2019 Pain control Give additional bolus of fluids due to tachycadia Check renal function in am ID consult appreciated Continue emperic antibiotics and monitor AM labs Patient able to eat DVT/GI PROPHY Continue IV antibiotics Abdominal wall closure done today 12/27/2019 Cultures: Blood culture 12/21/2019 Prevotella Surgical culture 12/21/2019 Pseudomonas pansensitive, E. coli Per ID A/P: 19-year-old man no past medical history admitted with rupture appendicitis. #Acute sepsis: Present with fevers and leukopenia. Secondary to ruptured appendicitis. Resolved #Prevotella bacteremia: Secondary to ruptured appendicitis. #Ruptured appendicitis: Cultures with Pseudomonas and E. coli. Closure to be performed on Friday. #Leukopenia: Likely secondary to acute illness, resolved -Continue fluconazole 400 mg every 24 hours -Agree with being able to discharge on oral antibiotics, source control is been obtained will need short course. -Plan on discharge with levofloxacin 750 mg every 24 hours, fluconazole 400 mg every 24 hours to complete 7 days post washout, 12/28/2019 -Discharge with metronidazole as well 500 mg every 8 hours till 01/04/2020 for the bacteremia Okay for discharge from infectious disease perspective. Disposition: - TO HOME OR SELFCARE Time spent for discharge: 36 minutes - Discharge Diagnoses (1) Acute perforated appendicitis Status: Acute (2) Peritonitis Status: Acute (3) Sepsis Status: Acute (4) DVT prophylaxis Status: Acute Core Measure Documentation - Palliative Care Palliative Care/ Comfort Measures: Not Applicable - Core Measures Any of the following diagnoses?: none Exam - Constitutional Vitals: Temp Pulse Resp BP Pulse Ox 97.7 F 81 16 121/75 97 12/27/19 11:00 12/27/19 11:15 12/27/19 11:15 12/27/19 11:15 12/27/19 11:15 General appearance: Present: no acute distress, well-nourished - EENT Eyes: Present: PERRL ENT: hearing intact, clear oral mucosa - Neck Neck: Present: supple, normal ROM - Respiratory Respiratory effort: normal Respiratory: bilateral: CTA - Cardiovascular Heart rate: 78 Rhythm: regular Heart Sounds: Present: S1 & S2. Absent: rub, click - Extremities Extremities: no ischemia, pulses intact, pulses symmetrical, No edema Peripheral Pulses: within normal limits - Abdominal General gastrointestinal: Present: soft, non-tender, non-distended, normal bowel sounds Male genitourinary: Present: normal - Rectal Rectal Exam: deferred - Integumentary Integumentary: Present: clear, warm, dry - Musculoskeletal Musculoskeletal: gait normal, strength equal bilaterally - Psychiatric Psychiatric: appropriate mood/affect, intact judgment & insight - Neurologic Neurologic: CNII-XII intact, moves all extremities - Allied Health Allied health notes reviewed: nursing, case management Plan Activity: no restrictions Diet: regular Follow up with: PRIMARY CARE, [Primary Care Provider] - 7 Days Prescriptions: Hyoscyamine Subl [Levsin Sl 0.125 TAB] 0.125 mg SL Q6HR PRN #20 tab PRN Reason: abdominal cramps and spasms Omeprazole 40 mg PO DAILY #30 capsule. Ondansetron [Zofran ODT TAB] 8 mg PO Q12HR #14 tab.maximino
== END 2019-12-27 16:05 | disposition home or self-care (01) | DRG 853 ==
LOC: ED 13:02 → CC1 12-21 00:09 → 3B 12-21 04:33
PROVIDERS: ADMIT Internal Medicine Geriatric Medicine; ATTEND Internal Medicine
PROC: 0DTJ0ZZ Resection of Appendix, Open Approach (ICD-10-PCS; principal; 2019-12-21)
PROC: 4A033R1 Measurement of Arterial Saturation, Peripheral, Percutaneous Approach (ICD-10-PCS; 2019-12-21)
PROC: 0WQFXZZ Repair Abdominal Wall, External Approach (ICD-10-PCS; 2019-12-27)
DX: A41.9 Sepsis, unspecified organism (principal); K35.32 Acute appendicitis with perforation, localized peritonitis, and gangrene, without abscess; N17.0 Acute kidney failure with tubular necrosis; E87.1 Hypo-osmolality and hyponatremia; K66.8 Other specified disorders of peritoneum; E80.6 Other disorders of bilirubin metabolism; Z79.899 Other long term (current) drug therapy
CPT/HCPCS: 36415; 71045; 71046; 74177; 80048; 80053; 80076; 80307; 81001; 82140; 82805; 83690; 84484; 85007; 85025; 85027; 85610; 85730; 87040; 87075; 87076; 87116; 87186; 88304; 94760; G0378; A6260; J1100; J1170; J1200; J1450; J1885; J2250; J2270; J2405; J2543; J2704; J2710; J2765; J3010; J7030; J7120; Q9967